=== PATIENT | male | born 1955 | race Caucasian/White ===

== ENCOUNTER → 2018-01-17 12:48 | Outpatient (CLI) | payer OTHER, SELFPAY ==
--- NOTE | 2018-01-17 12:50 | RAD_ITS ---
STUDY: X-RAY - LEFT KNEE REASON FOR EXAM: Male, 62 years old. Pain of the left knee. TECHNIQUE: 4 view(s) of the knee. COMPARISON: None. FINDINGS: Normal visualized distal femur. Normal visualized proximal tibia and fibula. Normal proximal tibiofibular articulation. Anterior enthesophyte of the patella. Normal medial femorotibial compartment. Normal lateral femorotibial compartment. Normal patellofemoral articulation. There is no demonstrated joint effusion. The soft tissue structures are unremarkable. RAD/Knee 4 or More Views IMPRESSION: Normally located knee without a fracture, osteolytic or blastic bone lesion. Anterior enthesophyte of the patella. Small volume joint effusion. Electronically Signed: Lo Kapadia MD at 18:04 EDT , Service support ,
[2018-01-17 13:20] LABS: Lyme Ab Screen Interpretation REF LAB
[2018-01-17 15:53] LABS: Absolute Lymphocyte Count 1.79 X10^3/ul (0.83-4.51); Absolute Neutrophil Count 4.9 X10^3/uL (2.0-7.7); Basophil# 0.07 X10^3/uL; Basophil% 0.9 % (0-1); Eosinophil# 0.13 X10^3/uL; Eosinophils% 1.7 % (0-5); Hemoglobin 17.3 g/dl (13.0-16.5); Lymphocyte # 1.79 X10^3/ul (4.0); Lymphocyte % 22.9 % (19-41); Mean Corp Hgb Conc 34.6 g/gl (32-36); Mean Corpuscular Volume 86.8 fL (80-94); Mean Platelet Vol. 12.3 fl (6.2-12.0); Monocyte# 0.75 X10^3/uL; Monocyte% 9.6 % (0-10); Neutrophil # 4.88 X10^3/uL (2.7-7.7); Neutrophil % 62.3 % (47-70); Platelet Count 226 K/mm3 (150-450); RBC Distribution Width CV 14.5 % (11.6-14.6); RBC Distribution Width SD 46.1 fl (35.1-43.9); Red Blood Count 5.76 M/mm3 (4.6-6.2); White Blood Count 7.8 K/mm3 (4.4-11.0)
[2018-01-17 15:58] LABS: POSITIVE COUNT YES; POSITIVE DIFFERENTIAL NO; POSITIVE MORPHOLOGY YES
[2018-01-17 16:13] LABS: CRP < 2.90 mg/L (0.0-3.0); Rheumatoid Factor < 10.0 IU/mL (<15)
[2018-01-17 16:26] LABS: Erythrocyte Sedimentation Rate 16 mm/hr (0-20)
[2018-01-18 12:09] LABS: Pathologist Review Reviewed
[2018-01-19 14:23] LABS: ANTINUCLEAR ANTIBODIES DIRECT Negative (Negative)
[2018-01-22 12:32] LABS: Lyme Scn Total Ab w/Rflx <0.91 ISR (0.00-0.90)
== END ==
PROVIDERS: Family Provider Family Medicine; PCP Family Medicine; Visit Provider Orthopaedic Surgery
DX: M25.561 Pain in right knee (principal); M25.462 Effusion, left knee
CPT/HCPCS: 36415; 73564; 85025; 85652; 86038; 86140; 86431; 86618

== ENCOUNTER → 2018-02-12 13:12 | Outpatient (CLI) | payer OTHER, SELFPAY ==
--- NOTE | 2018-02-12 13:21 | MRI_ITS ---
STUDY: MRI LEFT KNEE REASON FOR EXAM: Anterior knee pain for 4 weeks, no specific injury. TECHNIQUE: Standardized fat and water weighted pulse sequences were obtained in all 3 orthogonal planes. COMPARISON: Radiographs 01/17/2018. FINDINGS: There is a horizontal tear of the inferior articular surface of the posterior horn of the medial meniscus (proton-density sagittal images 10-12). Normal hyaline cartilage of the medial femorotibial compartment. Normal medial femoral condyle and tibial plateau. Normal medial collateral ligamentous complex (MCL). Normal distal semimembranosus, gracilis and semitendinosus tendons. Normal lateral meniscus. Normal hyaline cartilage of the lateral femorotibial compartment. Normal lateral femoral condyle and tibial plateau. Normal proximal tibiofibular articulation. Normal lateral collateral (fibular) ligament. Normal popliteus tendon. Normal biceps femoris tendon. Normal anterior cruciate ligament (ACL). Normal posterior cruciate ligament (PCL). Normal congruent patellofemoral articulation. Normal hyaline cartilage of the patellofemoral compartment. Normal medial and lateral patellar retinaculum. There is mild tendinosis of the distal quadriceps tendon (T2 sagittal image 14). Normal patellar tendon. Normal Hoffa's fat pad. There is a small joint effusion. There is a very small popliteal cyst with mild extravasation of fluid (T2 sagittal images 6-8). There is edema in the anterior subcutis adipose space. There is mild bone edema of the patella (T2 sagittal images 15-17). MRI/Lower Ext Joint Only (Routine) IMPRESSION: Medial meniscal tear. Mild tendinosis of the distal quadriceps tendon. Mild bone edema of the patella. Small joint effusion. Very small popliteal cyst with mild extravasation of fluid. Electronically Signed: Naeem Najera MD at 14:57 EDT Tel , Service support ,
== END ==
PROVIDERS: Family Provider Family Medicine; PCP Family Medicine; Visit Provider Orthopaedic Surgery
DX: S83.242A Other tear of medial meniscus, current injury, left knee, initial encounter (principal); M23.92 Unspecified internal derangement of left knee
CPT/HCPCS: 73721

== ENCOUNTER → 2018-02-16 10:11 | Outpatient (CLI) | payer OTHER, SELFPAY ==
[2018-02-16 12:37] LABS: Absolute Lymphocyte Count 0.92 X10^3/ul (0.83-4.51); Absolute Neutrophil Count 4.3 X10^3/uL (2.0-7.7); Basophil# 0.03 X10^3/uL; Basophil% 0.5 % (0-1); Eosinophils% 1.6 % (0-5); Hematocrit 42.9 % (40-54); Hemoglobin 14.5 g/dl (13.0-16.5); Lymphocyte # 0.92 X10^3/ul (4.0); Mean Corp Hgb Conc 33.8 g/gl (32-36); Mean Corpuscular Volume 88.8 fL (80-94); Mean Platelet Vol. 11.6 fl (6.2-12.0); Monocyte% 11.4 % (0-10); Neutrophil # 4.34 X10^3/uL (2.7-7.7); Neutrophil % 70.7 % (47-70); Platelet Count 274 K/mm3 (150-450); RBC Distribution Width CV 14.2 % (11.6-14.6); RBC Distribution Width SD 45.9 fl (35.1-43.9); Red Blood Count 4.83 M/mm3 (4.6-6.2); White Blood Count 6.1 K/mm3 (4.4-11.0)
[2018-02-16 12:41] LABS: POSITIVE COUNT NO; POSITIVE DIFFERENTIAL NO; POSITIVE MORPHOLOGY NO
[2018-02-16 12:43] LABS: Erythrocyte Sedimentation Rate 28 mm/hr (0-20)
== END ==
PROVIDERS: Visit Provider Family Medicine
DX: M70.42 Prepatellar bursitis, left knee (principal)
CPT/HCPCS: 36415; 85025; 85652; 86140

== ENCOUNTER 2018-02-19 11:24 | Emergency (ER) | payer OTHER, SELFPAY ==
[2018-02-19 11:25] VITALS: BP 116/77; PULSE 71; RESP 16; TEMP 36.7; O2SAT 100; BMI 31.1
--- NOTE | 2018-02-19 12:11 | RAD_ITS ---
STUDY: X-RAY - LEFT KNEE REASON FOR EXAM: Male, 62 years old. Left-sided knee pain and swelling. TECHNIQUE: 4 view(s) of the knee. COMPARISON: Radiographs of the left knee dated January 17, 2018. FINDINGS: Normal visualized distal femur. Normal visualized proximal tibia and fibula. Normal proximal tibiofibular articulation. There is no demonstrated fracture. Normal medial femorotibial compartment. Normal lateral femorotibial compartment. Normal patellofemoral articulation. There are enthesophytes arising from the quadriceps and patellar tendon insertions onto the patella. There is a moderate volume joint effusion. There is soft tissue contusion of the anterior knee. RAD/Knee 4 or More Views IMPRESSION: Soft tissue swelling and joint effusion. Electronically Signed: Valerie Briceno MD at 14:10 EDT , Service support ,
--- NOTE | 2018-02-19 12:22 | VDLE_ITS ---
Reason For Study: LEG PAIN AND SWELLING Procedure LEFT Exam performed portable in ED. GSV is normal. A preliminary report was called and/or faxed CFV is compressible, spontaneous, phasic, to ED nurse. competent, and demonstrates normal augmentation. FV is compressible, spontaneous, phasic, competent and demonstrates normal augmentation. POP V is compressible, spontaneous, phasic, competent and demonstrates normal augmentation. T/P Trunk is compressible. PTV is compressible. LT PerV is compressible. Interpretation Summary Deep veins of the left lower extremity are patent and compressible segmentally. There is no evidence of left lower extremity deep vein thrombosis. Valvular competence appears intact within the proximal deep venous system on the left . The left greater saphenous vein appears patent and compressible segmentally. Ordering Physician: Danuta Cooper Referring Physician: Paco Arvizu Performed By: Tonie Wilson RVT
[2018-02-19] MEDS: Ondansetron 4 MG/2 ML Vial IV (12:28)
[2018-02-19] MEDS: Morphine 4 MG/ML Syringe IV ×2 (12:28→15:10)
[2018-02-19 12:50] LABS: Absolute Lymphocyte Count 0.88 X10^3/ul (0.83-4.51); Absolute Neutrophil Count 6.7 X10^3/uL (2.0-7.7); Basophil# 0.04 X10^3/uL; Basophil% 0.5 % (0-1); Eosinophils% 1.2 % (0-5); Hematocrit 46.2 % (40-54); Hemoglobin 15.7 g/dl (13.0-16.5); Lymphocyte # 0.88 X10^3/ul (4.0); Lymphocyte % 10.3 % (19-41); Mean Corpuscular Hgb 29.8 pg (27.0-32.0); Mean Corpuscular Volume 87.7 fL (80-94); Mean Platelet Vol. 11.2 fl (6.2-12.0); Monocyte# 0.76 X10^3/uL; Monocyte% 8.9 % (0-10); Neutrophil # 6.72 X10^3/uL (2.7-7.7); Neutrophil % 78.4 % (47-70); POSITIVE COUNT NO; POSITIVE DIFFERENTIAL NO; POSITIVE MORPHOLOGY NO; Platelet Count 318 K/mm3 (150-450); RBC Distribution Width CV 14.2 % (11.6-14.6); RBC Distribution Width SD 45.6 fl (35.1-43.9); Red Blood Count 5.27 M/mm3 (4.6-6.2); White Blood Count 8.6 K/mm3 (4.4-11.0)
[2018-02-19 13:03] LABS: Anion Gap 7 (5-15); BUN 18 mg/dL (7-18); BUN/Creat Ratio 19.9 RATIO (10-20); Calcium,Total 9.2 mg/dL (8.5-10.1); Chloride 103 mmol/L (98-107); EST Glomerular Filtration Rate 91 mL/min (>60); Est Glom Filt Rate - Afr Amer 110 mL/min (>60); Glucose 84 mg/dL (74-106); Potassium 4.5 mmol/L (3.5-5.1); Sodium Level 136 mmol/L (136-145)
[2018-02-19 13:22] LABS: International Normalized Ratio 2.4; Prothrombin Time (Protime)PT. 26.6 SECONDS (11.7-14.9)
[2018-02-19 13:24] LABS: Partial Thromboplast Time 56.6 Seconds (24.1-36.2)
[2018-02-19 14:00] VITALS: BP 136/92; PULSE 96; RESP 16; O2SAT 99
[2018-02-19 16:07] LABS: AUTO B FLUID DILUENT BKGD CT WBC <0.1 RBC <0.01 (W<.1,R<.01); Pathologist Comment May follow
[2018-02-19 16:08] LABS: Appearance /Synovial Fluid Cloudy (CLEAR); Color / Synovial Fluid Red (Pale Yellow); Source / Synovial Fluid LEFT KNEE; Source- Body Fluid SYNOVIAL; Synovial Fld Mononuclear WBC # 0.255 10^3/ul; Synovial Fld Mononuclear WBC % 5.5 %; Synovial Fld Polynuclear WBC # 4.353 10^3/ul; Synovial Fld Polynuclear WBC % 94.5 %
--- NOTE | 2018-02-19 16:55 | ED.RN ---
called lab- reported it will be approx 30 min before results are in of fluid
[2018-02-19 17:03] LABS: Body Fluid QC Type(s) BF1Q,BF2Q
[2018-02-19 17:10] LABS: Lymph 2 %; Monocyte /Synovial Fluid 3 %; Neutrophil 95 % (0-25)
--- NOTE | 2018-02-19 17:29 | ED.VISSUMM ---
- ER Visit Summary Date of Service: 02/19/18 Chief Complaint: Left knee pain and swelling History of Present Illness: The patient is a 62 M presents for 4 weeks of worsening left knee pain and swelling. Patient has been having knee pain, for which she has been seeing Dr. Arvizu and his family doctor, over the last 4 weeks. He already had an x-ray and blood work performed and was given a cortisone shot. 2 weeks ago he had an MRI performed. He has an appointment with Dr. Arvizu on Monday. Last week he began having worsening swelling and was evaluated by his primary care doctor. Lab work was performed and she started him on Dicloxacillin, with this being day 3. The redness and swelling has improved somewhat but patient is in severe pain. He has history of mitral valve prolapse and atrial fibrillation for which she is on Coumadin. No history of blood clots in the lungs or legs. No fever or other systemic symptoms. Physical Examination: Vital signs: afebrile, hemodynamically stable, no hypoxia on room air General: well nourished, well developed, in no distress Skin: warm, dry, no rash, no pallor HEENT: normocephalic and atraumatic; PERRL, EOMI, moist mucous membranes Cardiovascular: regular rate and rhythm without murmurs, no peripheral edema, 2+ pulses all distal extremities Respiratory: No increased work of breathing, lungs are clear to auscultation bilaterally, no rales, rhonchi or wheezing Abdominal: Abdomen is soft, nontender with normoactive bowel sounds, no guarding or rebound, no masses MSK: Moves all extremities, no deformities, normal strength, left lower leg has swelling and tenderness with mild erythema on the proximal knee distally. DP pulses 2+. Pain with very minimal movement. Neuro: Awake and alert, oriented ?4. No facial droop, sensation and motor function intact and symmetric Test Results: Abnormal Lab Results 02/19/18 02/19/18 02/19/18 12:33 12:33 12:33 WBC 8.6 RBC 5.27 Hgb 15.7 Hct 46.2 MCV 87.7 MCH 29.8 MCHC 34.0 RDW 14.2 RDW Differential 45.6 H Plt Count 318 MPV 11.2 Immature Gran % (Auto) 0.700 Neut % (Auto) 78.4 H Lymph % (Auto) 10.3 L [place] % (Auto) 8.9 Eos % (Auto) 1.2 Baso % (Auto) 0.5 Absolute Neuts (auto) 6.7 Absolute Lymphs (auto) 0.88 Total Counted Not Reportable PT Cancelled INR Cancelled APTT Cancelled Sodium 136 Potassium 4.5 Chloride 103 Carbon Dioxide 26.0 Anion Gap 7 BUN 18 Creatinine 0.90 Estim Creat Clear Calc 95.80 Est GFR (MDRD) Af Amer 110 Est GFR (MDRD) Non-Af 91 BUN/Creatinine Ratio 19.9 Glucose 84 Calcium 9.2 Fluid Source Fluid Color Fluid Appearance Fluid WBC Fluid RBC Fluid Tot Cell Count Fld Polynuclear WBCs # Fld Polynuclear WBCs % Fluid Mononuclear WBCs Fld Mononuclear WBCs % Fluid Neutrophils Fluid Lymphocytes Fluid Monocytes Fluid Plasma Cells Fluid Macrophages Fld Mesothelial Cells Fluid Other Cells Fluid Crystals Fluid Crystal Source Fl Crystal Path Review Fl Pathologist Comment Fluid Glucose Fluid Total Protein Fluid Comment 2 Synovial Source Synovial Color Synovial Appearance Synovial WBC Synovial RBC Synovial Tot Cell Ct Synov Polynuclear WBCs Synov Mononuclear WBCs Synovial Neutrophils Synovial Lymphocytes Synovial Monocytes Synovial Polynuclear % Synovial Mononuclear % Synovial Path Comment 02/19/18 02/19/18 02/19/18 13:05 15:40 15:40 WBC RBC Hgb Hct MCV MCH MCHC RDW RDW Differential Plt Count MPV Immature Gran % (Auto) Neut % (Auto) Lymph % (Auto) [place] % (Auto) Eos % (Auto) Baso % (Auto) Absolute Neuts (auto) Absolute Lymphs (auto) Total Counted PT 26.6 H INR 2.4 APTT 56.6 H Sodium Potassium Chloride Carbon Dioxide Anion Gap BUN Creatinine Estim Creat Clear Calc Est GFR (MDRD) Af Amer Est GFR (MDRD) Non-Af BUN/Creatinine Ratio Glucose Calcium Fluid Source Cancelled Fluid Color Cancelled Fluid Appearance Cancelled Fluid WBC Cancelled Fluid RBC Cancelled Fluid Tot Cell Count Cancelled Fld Polynuclear WBCs # Cancelled Fld Polynuclear WBCs % Cancelled Fluid Mononuclear WBCs Cancelled Fld Mononuclear WBCs % Cancelled Fluid Neutrophils Cancelled Fluid Lymphocytes Cancelled Fluid Monocytes Cancelled Fluid Plasma Cells Cancelled Fluid Macrophages Cancelled Fld Mesothelial Cells Cancelled Fluid Other Cells Cancelled Fluid Crystals SEE PATH REV Fluid Crystal Source SYNOVIAL Fl Crystal Path Review Will follow Fl Pathologist Comment Cancelled Fluid Glucose Cancelled Fluid Total Protein Cancelled Fluid Comment 2 Cancelled Synovial Source LEFT KNEE Synovial Color Red Synovial Appearance Cloudy Synovial WBC 4.6080 H Synovial RBC 0.070 H Synovial Tot Cell Ct 4.6110 H Synov Polynuclear WBCs 4.353 Synov Mononuclear WBCs 0.255 Synovial Neutrophils 95 H Synovial Lymphocytes 2 Synovial Monocytes 3 Synovial Polynuclear % 94.5 Synovial Mononuclear % 5.[address]ovial [address] Comment May follow Emergency Department Course and Treatment: Workup was performed to evaluate for possible septic arthritis. Left knee x-ray showed a joint effusion but no fractures. Ultrasound was performed to rule out DVT, and it was negative. Patient had no leukocytosis on lab work. INR was 2.4. He was discussed with Dr. Arvizu's PA, who contacted Dr. Arvizu re: arthrocentesis. It was deemed safe to perform with patient's INR 2.4, and if concern for infection, Dr. Arvizu asked patient be admitted to the hospitalist and he will perform a washout tomorrow. If negative for infection, he will see the patient on Monday as planned. After weighing the risks and benefits with the patient, he opted for the arthrocentesis, and we discussed that the possible side effects would be hemarthrosis from him being on Coumadin, infection if there is not currently infection, or worsening of his condition. Patient's knee was prepared with Betadine, and using sterile technique, an 18-gauge needle was inserted parapatellar laterally, with aspiration of 12.5 cc of mildly bloody clear synovial fluid. No cloudiness noted. Blood is likely secondary to the actual procedural tap. Synovial fluid analysis was consistent with inflammatory etiology, and less concerning for infectious etiology. Patient was discharged home and will follow up on Monday as scheduled. He has great sensitivities to multiple pain medications but did well with morphine the emergency department. He was given a small prescription for oral morphine IR well as topical diclofenac to try. He was given Zofran to use with his pain medications. Return precautions given. Patient discharged home. Treatment Plan: [] Disposition: [] Impression: Inflammatory left knee effusion, left knee pain This note was generated with [employer] dictation software. It may contain incorrect words, spelling, and punctuation that were not noted in review of the chart prior to signing ED Disposition - Plan for ED Patient: Disposition: Home or Assisted Living Chief Complaint: Lower Extremity Injury Instructions: ED Knee Pain [facility] Prescriptions: Morphine [Morphine IR] 7.5 - 15 mg PO Q6H PRN PRN 2 Days #8 tab PRN Reason: Pain Ondansetron [Zofran Odt] 4 mg PO Q8H PRN PRN #20 tab PRN Reason: Nausea Diclofenac Sodium [Voltaren] 2 gm TOPICAL 4X/DAY PRN PRN #100 gel..gram. PRN Reason: Pain Referrals: Danuta Boswell DO [Primary Care Provider] - Paco Arvizu DO [STAFF PHYSICIAN] - 2 Days Additional Instructions: Keep your appointment with Dr. Arvizu in 2 days. You may try the topical Voltaren over the morphine tablets for pain. Use the Zofran with the tablets to prevent nausea. If you have any adverse symptoms from the pain medication, stop it immediately. If you have any worsening of your condition or any new concerning symptoms, please return immediately to the emergency department for another evaluation.
[2018-02-20 14:14] LABS: Pathologist Review Reviewed
[2018-02-22 10:07] LABS: GLUCOSE, SYNOVIAL FLUID 78 mg/dL (.); PROTEIN, SYNOVIAL FLUID 3.2 g/dL (.)
== END 2018-02-19 18:47 | disposition home or self-care (01) ==
PROVIDERS: Emergency Provider Emergency Medicine; Family Provider Family Medicine; PCP Family Medicine
DX: M25.462 Effusion, left knee (principal); M25.562 Pain in left knee; I34.1 Nonrheumatic mitral (valve) prolapse; I48.91 Unspecified atrial fibrillation; Z79.01 Long term (current) use of anticoagulants; Z79.899 Other long term (current) drug therapy
CPT/HCPCS: 20610; 73564; 80048; 82945; 84157; 85025; 85610; 85730; 87040; 87070; 87075; 87205; 89050; 89051; 89060; 93971; 99283; A4216; J2405

== ENCOUNTER → 2019-12-06 08:46 | Outpatient (CLI) | payer OTHER, SELFPAY ==
[2019-12-06 12:26] LABS: Absolute Lymphocyte Count 1.34 X10^3/uL (0.83-4.51); Absolute Neutrophil Count 2.3 X10^3/uL (2.0-7.7); Basophil# 0.06 X10^3/uL; Basophil% 1.4 % (0-1); Eosinophil# 0.16 X10^3/uL; Eosinophils% 3.7 % (0-5); Hematocrit 48.5 % (40-54); Hemoglobin 15.9 g/dL (13.0-16.5); Lymphocyte # 1.34 X10^3/ul (4.0); Lymphocyte % 30.6 % (19-41); Mean Corp Hgb Conc 32.8 g/dL (32-36); Mean Corpuscular Hgb 29.5 pg (27.0-32.0); Mean Platelet Vol. 11.4 fl (6.2-12.0); Monocyte# 0.45 X10^3/uL; Monocyte% 10.3 % (0-10); NRBC Flagged by Analyzer 0 % (0-5); Neutrophil # 2.34 X10^3/uL (2.7-7.7); Neutrophil % 53.3 % (47-70); Platelet Count 237 K/mm3 (150-450); RBC Distribution Width CV 13.4 % (11.6-14.6); RBC Distribution Width SD 44.2 fl (35.1-43.9); Red Blood Count 5.39 M/mm3 (4.6-6.2); White Blood Count 4.4 K/mm3 (4.4-11.0)
[2019-12-06 12:34] LABS: International Normalized Ratio 1.6
[2019-12-06 12:40] LABS: AST(SGOT) 28 U/L (15-37); Alanine Aminotransfer ALT/SGPT 47 U/L (16-61); Albumin, Serum 3.8 g/dL (3.2-5.0); Alkaline Phosphatase 69 U/L (45-117); Anion Gap 7 (5-15); BUN 28 mg/dL (7-18); BUN/Creat Ratio 26.7 RATIO (10-20); Calcium,Total 8.7 mg/dL (8.5-10.1); Chloride 102 mmol/L (98-107); Creatinine, Serum 1.05 mg/dL (0.70-1.30); EST Glomerular Filtration Rate 76 mL/min (>60); Est Glom Filt Rate - Afr Amer 92 mL/min (>60); Globulin 3.7 g/dL (2.2-4.2); Glucose 107 mg/dL (74-106); Potassium 4.2 mmol/L (3.5-5.1); Protein, Total 7.5 g/dL (6.4-8.2); Sodium Level 137 mmol/L (136-145); Uric Acid 8.8 mg/dL (3.5-7.2)
== END ==
PROVIDERS: PCP Family Medicine; Visit Provider Family Medicine
DX: Z51.81 Encounter for therapeutic drug level monitoring (principal); Z79.01 Long term (current) use of anticoagulants; M10.9 Gout, unspecified
CPT/HCPCS: 36415; 80053; 84550; 85025; 85610

== ENCOUNTER 2020-02-24 08:48 | Outpatient (RCR) | payer OTHER, SELFPAY ==
[2020-02-24 10:35] LABS: International Normalized Ratio 2.8; Prothrombin Time (Protime)PT. 29.2 SECONDS (11.7-14.9)
== END 2020-02-24 18:00 | disposition home or self-care (01) ==
LOC: MTLAB 08:48
PROVIDERS: PCP Family Medicine; Referring Provider Family Medicine; Visit Provider Family Medicine
DX: I48.91 Unspecified atrial fibrillation (principal); Z51.81 Encounter for therapeutic drug level monitoring; Z79.01 Long term (current) use of anticoagulants
CPT/HCPCS: 36415; 85610

== ENCOUNTER 2020-07-14 11:42 | Outpatient (RCR) | payer OTHER, SELFPAY ==
[2020-07-14 15:12] LABS: International Normalized Ratio 2.7; Prothrombin Time (Protime)PT. 28.3 SECONDS (11.7-14.9)
== END 2020-07-14 18:00 | disposition home or self-care (01) ==
LOC: MTLAB 11:42
PROVIDERS: PCP Family Medicine; Referring Provider Family Medicine; Visit Provider Family Medicine
DX: I48.91 Unspecified atrial fibrillation (principal); Z51.81 Encounter for therapeutic drug level monitoring; Z79.01 Long term (current) use of anticoagulants
CPT/HCPCS: 36415; 85610

== ENCOUNTER 2020-10-23 14:15 | Outpatient (RCR) | payer OTHER, SELFPAY ==
[2020-10-23 17:45] LABS: International Normalized Ratio 2.1; Prothrombin Time (Protime)PT. 22.9 SECONDS (11.7-14.9)
== END 2020-10-23 18:00 | disposition home or self-care (01) ==
LOC: MTLAB 14:15
PROVIDERS: PCP Family Medicine; Referring Provider Family Medicine; Visit Provider Family Medicine
DX: I48.91 Unspecified atrial fibrillation (principal); Z51.81 Encounter for therapeutic drug level monitoring; Z79.01 Long term (current) use of anticoagulants
CPT/HCPCS: 36415; 85610

== ENCOUNTER → 2020-12-09 10:31 | Outpatient (CLI) | payer OTHER, SELFPAY ==
--- NOTE | 2020-12-09 10:34 | RAD_ITS ---
STUDY: X-RAY - RIGHT FOOT CLINICAL: Right heel/foot pain. TECHNIQUE: 3 view(s) of the foot. COMPARISON: Radiographs 02/04/2011. FINDINGS: There is a posterior calcaneal enthesophyte, increased in size since the prior study. Otherwise, unremarkable talus, calcaneus, and tarsal bones. Normal visualized subtalar, talonavicular, calcaneocuboid, tarsal and tarsometatarsal articulations. Normal metatarsi. There is interval development of a small subchondral cyst in the first metatarsal head without joint space narrowing of the metatarsophalangeal joint of the great toe. Normal tibial and fibular sesamoid bones. Normal interphalangeal joint of the great toe. Normal phalanges of the great toe. Normal second through fifth metatarsophalangeal joints. Normal interphalangeal joints and phalanges of the lesser toes. The soft tissue structures are unremarkable. RAD/Foot min 3 Views IMPRESSION: Posterior calcaneal enthesophyte. Small subchondral cyst in the first metatarsal head. Electronically Signed: Naeem Najera MD at 13:40 EDT Tel , Service support ,
== END ==
PROVIDERS: PCP Family Medicine; Referring Provider Family Medicine; Visit Provider Family Medicine
DX: M79.671 Pain in right foot (principal)
CPT/HCPCS: 73630

== ENCOUNTER → 2022-08-05 | Outpatient (CLI) | payer MEDICARE, OTHER, SELFPAY ==
--- NOTE | 2022-08-05 15:29 | RAD_ITS ---
STUDY: XR Ankle Min 3 Views REASON FOR EXAM: Male, 67 years old. ANKLE PAIN TECHNIQUE: XR Ankle Min 3 Views RIGHT COMPARISON: None. FINDINGS: Normal visualized distal tibia and fibula. Normal medial and lateral malleoli. Normal tibiotalar articulation and ankle mortise. The visualized subtalar, talonavicular, calcaneocuboid and tarsal articulations are normal. There is an enthesophyte involving the posterior superior calcaneus at the site of insertion of the Achilles tendon. RAD/Ankle min 3 Views IMPRESSION: There is an enthesophyte involving the posterior superior calcaneus at the site of insertion of the Achilles tendon. Electronically Signed: Jared Trinh MD at 18:52 EST ,
[2022-08-05 17:45] LABS: Absolute Lymphocyte Count 1.76 X10^3/uL (0.83-4.51); Absolute Neutrophil Count 8.9 X10^3/uL (2.0-7.7); Basophil# 0.08 X10^3/uL; Basophil% 0.7 % (0-1); Eosinophil# 0.03 X10^3/uL; Eosinophils% 0.2 % (0-5); Hemoglobin 16.2 g/dL (13.0-16.5); Lymphocyte # 1.76 X10^3/ul (0.83-4.51); Lymphocyte % 14.7 % (19-41); Mean Corp Hgb Conc 33.8 g/dL (32-36); Mean Corpuscular Hgb 30.2 pg (27.0-32.0); Mean Corpuscular Volume 89.4 fL (80-94); Mean Platelet Vol. 11.6 fl (6.2-12.0); Monocyte# 1.04 X10^3/uL; Monocyte% 8.7 % (0-10); NRBC Flagged by Analyzer 0 % (0-5); Neutrophil # 8.85 X10^3/uL (2.7-7.7); Neutrophil % 73.6 % (47-70); Platelet Count 244 K/mm3 (150-450); RBC Distribution Width SD 45.1 fl (35.1-43.9); Red Blood Count 5.37 M/mm3 (4.6-6.2)
[2022-08-05 18:06] LABS: Anion Gap 7 (5-15); BUN 31 mg/dL (7-18); BUN/Creat Ratio 36.7 RATIO (10-20); CRP < 2.90 mg/L (0.0-3.0); Calcium,Total 8.9 mg/dL (8.5-10.1); Chloride 103 mmol/L (98-107); Creatinine, Serum 0.84 mg/dL (0.70-1.30); EST Glomerular Filtration Rate 97 mL/min (>60); Est Glom Filt Rate - Afr Amer 117 mL/min (>60); Glucose 81 mg/dL (74-106); Sodium Level 139 mmol/L (136-145); Uric Acid 5.9 mg/dL (3.5-7.2)
== END | disposition home or self-care (01) ==
LOC: MTLAB 15:27
PROVIDERS: PCP Family Medicine; Referring Provider Family Medicine; Visit Provider Family Medicine
DX: M10.9 Gout, unspecified (principal); Z51.81 Encounter for therapeutic drug level monitoring; M79.671 Pain in right foot
CPT/HCPCS: 36415; 73610; 80048; 84550; 85025; 86140

== ENCOUNTER → 2023-11-17 | Outpatient (CLI) | payer MEDICARE, OTHER, SELFPAY ==
[2023-11-17 12:33] LABS: International Normalized Ratio 1.9; Prothrombin Time (Protime)PT. 21.5 SECONDS (11.7-14.9)
== END | disposition home or self-care (01) ==
LOC: BFHLAB 10:09
PROVIDERS: PCP Family Medicine; Visit Provider Family Medicine
DX: Z79.01 Long term (current) use of anticoagulants (principal)
CPT/HCPCS: 36415; 85610

== ENCOUNTER → 2024-02-29 | Outpatient (CLI) | payer MEDICARE, OTHER, SELFPAY ==
[2024-02-29 15:32] LABS: Absolute Lymphocyte Count 1.78 X10^3/uL (0.83-4.51); Absolute Neutrophil Count 5.2 X10^3/uL (2.0-7.7); Basophil# 0.06 X10^3/uL; Basophil% 0.7 % (0-1); Eosinophil# 0.14 X10^3/uL; Eosinophils% 1.7 % (0-5); Hematocrit 45.5 % (40-54); Hemoglobin 15.4 g/dL (13.0-16.5); Lymphocyte # 1.78 X10^3/ul (0.83-4.51); Mean Corp Hgb Conc 33.8 g/dL (32-36); Mean Corpuscular Hgb 29.6 pg (27.0-32.0); Mean Corpuscular Volume 87.5 fL (80-94); Mean Platelet Vol. 11.8 fl (6.2-12.0); Monocyte# 0.85 X10^3/uL; Monocyte% 10.5 % (0-10); NRBC Flagged by Analyzer 0 % (0-5); Neutrophil # 5.23 X10^3/uL (2.7-7.7); Neutrophil % 64.6 % (47-70); Platelet Count 209 K/mm3 (150-450); RBC Distribution Width CV 13.7 % (11.6-14.6); RBC Distribution Width SD 43.9 fl (35.1-43.9); White Blood Count 8.1 K/mm3 (4.4-11.0)
[2024-02-29 16:30] LABS: ALB/GLOB Ratio 1.1 RATIO (0.9-2.4); AST(SGOT) 23 U/L (15-37); Alanine Aminotransfer ALT/SGPT 28 U/L (16-61); Albumin, Serum 3.7 g/dL (3.2-5.0); Alkaline Phosphatase 70 U/L (45-117); Anion Gap 7 (5-15); BUN 20 mg/dL (7-18); Calcium,Total 9.2 mg/dL (8.5-10.1); Chloride 104 mmol/L (98-107); Creatinine, Serum 1.11 mg/dL (0.70-1.30); EST Glomerular Filtration Rate 70 mL/min (>60); Est Glom Filt Rate - Afr Amer 85 mL/min (>60); Globulin 3.3 g/dL (2.2-4.2); Glucose 103 mg/dL (74-106); Potassium 4.1 mmol/L (3.5-5.1); Sodium Level 138 mmol/L (136-145)
[2024-03-04 12:08] LABS: ANTINUCLEAR ANTIBODIES DIRECT Negative (Negative)
== END | disposition home or self-care (01) ==
LOC: BFHLAB 13:32
PROVIDERS: PCP Family Medicine; Referring Provider Family Medicine; Visit Provider Family Medicine
DX: R23.3 Spontaneous ecchymoses (principal); Z51.81 Encounter for therapeutic drug level monitoring
CPT/HCPCS: 36415; 80053; 85025; 86038; 86225; 86235

== ENCOUNTER → 2024-03-19 | Outpatient (CLI) | payer MEDICARE, SELFPAY ==
--- NOTE | 2024-03-19 11:32 | RAD_ITS ---
STUDY: X-RAY CHEST REASON FOR EXAM: Male, 68 years old. Persistent cough. TECHNIQUE: Frontal and lateral views of the chest. COMPARISON: None. FINDINGS: The lungs are clear and expanded. There is no demonstrated pleural abnormality. Mild cardiomegaly. Normal mediastinum and nusrat. Normal visualized pulmonary arteries. Mild aortic tortuosity. Normal visualized thoracic spine. Normal visualized ribs, clavicles, and shoulders. No abnormality of the visualized soft tissue structures of the upper abdomen. RAD/Chest PA and Lateral IMPRESSION: Mild cardiomegaly with no acute or active cardiopulmonary disease. Electronically Signed: Hardik Cohn MD at 11:47 EDT ,
== END | disposition home or self-care (01) ==
LOC: MTRAD 11:31
PROVIDERS: PCP Family Medicine; Referring Provider Family Medicine; Visit Provider Family Medicine
DX: R05.3 Chronic cough (principal)
CPT/HCPCS: 71046

== ENCOUNTER → 2024-03-29 | Outpatient (CLI) | payer MEDICARE, SELFPAY | END | disposition home or self-care (01) | LOC: PSN 08:00 | PROVIDERS: PCP Family Medicine; Referring Provider Family Medicine; Visit Provider Family Medicine | DX: R05.9 Cough, unspecified (principal) | CPT/HCPCS: 94060; 94726; 94729 ==

== ENCOUNTER → 2024-11-21 | Outpatient (CLI) | payer MEDICARE, SELFPAY ==
[2024-11-21 14:23] LABS: Cholesterol 198 mg/dL (<=200); High Density Lipoprotein 49 mg/dL; Low Density Lipoprotein Calc. 117 mg/dL; Triglycerides 162 mg/dL; Very Low Density Lipoprotein 32 mg/dL (5-40); cholesterol:hdl ratio screen 4.03
== END | disposition home or self-care (01) ==
LOC: BFHLAB 08:24
PROVIDERS: PCP Family Medicine; Referring Provider Family Medicine; Visit Provider Family Medicine
DX: E78.1 Pure hyperglyceridemia (principal)
CPT/HCPCS: 36415; 80061

== ENCOUNTER 2025-03-24 09:00 | Outpatient (RCR) | payer MEDICARE, SELFPAY ==
--- NOTE | 2025-02-26 10:13 | HP.PTEVAL_ITS ---
Patient's Visit Information Visit Information Visit Information: JC BHANDARI is a 69 year old M referred to Physical Therapy by Dr. Rancho Birmingham DO with a diagnosis of R heel pain. 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 US if needed for pain Subjective Subjective: Pt has had R heel/foot pain for approximately 3 weeks now. Pt reports he was working at his [employer] house when he attempted to stand up and noticed severe pain on the posterior aspect of his R heel. Pt reports he has had an x-ray which revealed a bone spur on the back of his heel. Pt notes he had B heel surgery 20 years ago to remove heel spurs which have started to grow back. Pt notes he has been ambulating in a cam boot for the past few days and taking prednisone, which has really helped to decrease his pain. Pt notes he is going to be seeing his doctor again tomorrow. Pt denies tingling or numbness in that area, although he does have neuropathy which results in occasional numbness in feet. Pt notes occasional sleep difficulty secondary to pain. 0/10 pain at rest, 10/10 pain at worst Pain R heel: Pain Intensity (Out of 10): 0 Pain Intensity Range: 10 Objective Objective: Neuro: B LE sensation is WNL to light touch. Palpation: Mild pain on the posterior astect of R heel. Minor increased growth of calcaneal tubercle noted. ROM: L ankle DF= 10, PF= 35; R ankle DF= 3, PF= 35 degrees MMT: L ankle DF= 52, PF= 66; R ankle DF= 42, PF= 53 #F Balance/Special Test Scores Lower Extremity Functional Score: 56 Goals Goal 1:: Decrease R heel pain x 50% to aid with sleep Goal Time Frame: 4-6 Weeks Goal 2:: Increase R LE DF ROM x 10 degrees to aid with decreasing pain Goal Time Frame: 4-6 Weeks Goal 3:: I with HEP Goal Time Frame: 4-6 Weeks Rehabilitation Potential Physical Therapy Diagnosis: Pt has R heel pain and limited ankle DF ROM secondary to R LE heel spurs Rehabilitation Potential: Good Anticipated Interventions Patient/Client Instruction: Educate patient on: Condition and Plan of Care For the Purpose of:: To improve self management Therapeutic Exercise to Include: Strength training, Flexibilty training, Passive ROM and Active ROM For the Purpose of:: To decrease pain, To increase ROM and To improve muscle p erformance and motor function Manual Therapy Techniques to Include: Mobilization and Soft tissue mobilization For the Purpose of:: To decrease pain, To increase ROM and To improve muscle performance and motor function Text: Thank you for the opportunity to evaluate your patient. For Medicare and Medicare HMO plans, please review the plan of care and approve it. It will need to be FAXED BACK to us at [phone] for Medicare purposes. For Medicare only, by signing this I certify the plan of care. Please let me know if there are questions or concerns regarding this plan of care. Physician Signature: Date:
--- NOTE | 2025-05-20 08:44 | HP.PT.NRP ---
Patient Information Patient Information: JC BHANDARI was seen in my office for initial evaluation on 02/26/25. The following Plan of Care was established for this patient: POC Established Initial Frequency: 2x /Week Initial Duration: 2-4 Weeks Anticipated Interventions Patient/Client Instruction: Educate patient on: Condition and Plan of Care For the Purpose of:: To improve self management Therapeutic Exercise to Include: Strength training, Flexibilty training, Passive ROM and Active ROM For the Purpose of:: To decrease pain, To increase ROM and To improve muscle performance and motor function Manual Therapy Techniques to Include: Mobilization and Soft tissue mobilization For the Purpose of:: To decrease pain, To increase ROM and To improve muscle performance and motor function Last Seen Last Seen: This patient was last seen in our office . Pertinent comments regarding their Physical therapy will appear below: Pt has not returned in greater than 30 days and is discontinued at this time. At this point I will be discontinuing this patient from physical therapy. I would be happy to see this patient again in the future if found appropriate by the physician. Thank you! Jared Dee, PT, ATC Balance/Gait/Functional tests Balance/Special Test Scores Lower Extremity Functional Score: 56
== END 2025-03-24 19:00 | disposition home or self-care (01) ==
LOC: PT 09:00
PROVIDERS: PCP Family Medicine; Referring Provider Family Medicine; Visit Provider Family Medicine
DX: M77.31 Calcaneal spur, right foot (principal); M77.51 Other enthesopathy of right foot and ankle
CPT/HCPCS: 97110; 97140; 97161

== ENCOUNTER 2025-05-20 10:59 | Inpatient (IN) | payer MEDICARE, SELFPAY ==
[2025-05-20] VITALS (8 sets, daily range): BP systolic 121–154; BP diastolic 66–105; PULSE 89–114; RESP 16–19; TEMP 35.3–37.2; O2SAT 97–100; BMI 31.1
--- NOTE | 2025-05-20 11:43 | EKG12_ITS ---
Test Reason : Blood Pressure : */* mmHG Vent. Rate : 114 BPM Atrial Rate : * BPM P-R Int : * ms QRS Dur : 94 ms QT Int : 336 ms P-R-T Axes : * 37 -7 degrees QTcB Int : 463 ms Atrial fibrillation with rapid ventricular response with premature ventricular or aberrantly conducted complexes Possible Inferior infarct , age undetermined Abnormal ECG Confirmed by MOISE BOYKIN ([id number]), editorial director ANA CHARLES ([id number]) on 05/21/2025 1:53:52 PM Referred By: SHABBIR Confirmed By: MOISE BOYKIN
--- NOTE | 2025-05-20 11:55 | RAD_ITS ---
PROCEDURE: KNEE 4 OR MORE VIEWS 05/20/2025 REASON FOR EXAM: PAIN, SWELLING TECHNIQUE: Left knee four views COMPARISON: None FINDINGS: There is mild medial joint space narrowing with the minimal spurring of the patellofemoral articulation. There is a large visible joint effusion. There is no acute fracture or dislocation. Mineralization is normal. There is visible atherosclerosis. RAD/Knee 4 or More Views IMPRESSION: There is mild medial joint space narrowing with the minimal spurring of the pat ellofemoral articulation. There is a large visible joint effusion. Reading Location: [facility]
[2025-05-20 12:05] LABS: Hematocrit 51.2 % (40-54); Hemoglobin 17.4 g/dL (13.0-16.5); Immature Granulocytes Count 0.170 X10^3/uL (0.0-0.0); Mean Corp Hgb Conc 34.0 g/dL (32-36); Mean Corpuscular Volume 86.9 fL (80-94); Mean Platelet Vol. 10.8 fl (6.2-12.0); NRBC Flagged by Analyzer 0 % (0-5); Platelet Count 222 K/mm3 (150-450); RBC Distribution Width CV 14.2 % (11.6-14.6); RBC Distribution Width SD 45.7 fl (35.1-43.9); Red Blood Count 5.89 M/mm3 (4.6-6.2); White Blood Count 9.1 K/mm3 (4.4-11.0)
[2025-05-20 12:15] LABS: Prothrombin Time (Protime)PT. 41.7 SECONDS (11.7-14.9)
[2025-05-20 12:16] LABS: Partial Thromboplast Time 57.0 Seconds (24.1-36.2)
[2025-05-20 12:49] LABS: AST(SGOT) 24 U/L (<=37); Alanine Aminotransfer ALT/SGPT 30 U/L (<=46); Albumin, Serum 4.0 g/dL (3.4-4.8); Alkaline Phosphatase 74 U/L (40-129); Anion Gap 13 (5-15); BUN 27 mg/dL (4-19); BUN/Creat Ratio 22.2 RATIO (10-20); Calcium,Total 9.5 mg/dL (7.6-11.0); Carbon Dioxide 23.8 mmol/L (21.0-32.0); Chloride 101 mmol/L (98-108); Globulin 3.1 g/dL (2.2-4.2); Glucose 107 mg/dL (70-99); Potassium 4.6 mmol/L (3.3-5.1)
--- NOTE | 2025-05-20 13:19 | ED.VIS.LOWEX ---
HPI History of Present Illness Chief Complaint: Lower Extremity Injury Narrative Narrative: 70-year-old male past medical history of paroxysmal atrial fibrillation on warfarin presents at the direction of his primary care provider Dr. Birmingham because of failure of outpatient treatment for left knee prepatellar bursitis. Patient and physician had relate history that he started having swelling of the proximal left prepatellar bursa. It was not septic at that time. However, it turned red and he was started on cefdinir. He started a 1 week course of therapy with that. He has a personal friend at [facility] Who is an orthopedic surgeon, and because of the redness, was seen and evaluated. It was felt that he did not have septic arthritis, but more of a septic bursitis. They did not want arthrocentesis or drainage of the bursa performed. Instead they started him on Bactrim DS. He was taking double antibiotics. He is continuing to have left knee pain that is worse with movement as well as increased redness. He denies any fevers or chills, no nausea or vomiting, no other symptoms. He states he was sent here for IV antibiotics and admission. [facility] Medical History Afib Home Medications ?Medication ?Instructions ?Recorded ?Last Taken ?Type pentoxifylline 400 mg 400 mg PO BID 02/19/18 05/20/25 History tablet,extended release warfarin 5 mg tablet (Coumadin) 5 mg PO QODAY 02/19/18 05/18/25 History allopurinol 100 mg tablet 100 mg PO QODAY 05/20/25 05/19/25 History amitriptyline 50 mg tablet 25 mg PO DAILY 05/20/25 05/19/25 History cefdinir 300 mg capsule 300 mg PO Q12.TCU 05/20/25 05/20/25 History hydrocodone-acetaminophen 5-325mg 1 tab PO 4X/DAY PRN PRN pain 05/20/25 05/17/25 History 5mg-325mg ibuprofen 200 mg tablet (Advil) 800 mg PO Q6H PRN pain 05/20/25 05/20/25 History latanoprost 0.005 % eye drops 1 drp ophthalmic (eye) QPM 05/20/25 05/19/25 History metoprolol tartrate 50 mg tablet 25 mg PO BID 05/20/25 05/20/25 History nitroglycerin 0.4 mg sublingual 0.4 mg sublingual Q5M PRN chest 05/20/25 Unknown History tablet pain sulfamethoxazole 800 1 tab PO BID 05/20/25 05/20/25 History mg-trimethoprim 160 mg tablet warfarin 5 mg tablet 7.5 mg PO QODAY 05/20/25 05/19/25 History Allergy/AdvReac Type Severity Reaction Status Date / Time acetaminophen (From Vicodin) AdvReac Nausea/Vom/ Verified 05/20/25 11:03 Diarrhea hydrocodone bitartrate (From AdvReac Nausea/Vom/ Verified 05/20/25 11:03 Vicodin) Diarrhea Family History Mother Hypertension Multiple sclerosis Surgical History H/O foot surgery Social History Smoking Status: Never smoker ROS ROS ED ROS Narrative Review of systems positive for left knee pain, swelling of prepatellar bursa, mild erythema, but no fevers or chills, no nausea or vomiting. Pain worse with movement. Range of motion limited secondary to pain. EXAM Physical Exam Narrative Exam Narrative: Afebrile. Vital signs noted. Nontoxic-appearing. Cardiovascular examination feels regular rate and rhythm. Lungs clear to auscultation bilaterally. Abdomen soft nontender with positive bowel sounds. Inspection of the left knee does show swelling of the more proximal anterior patella. Neurovascular tact distally with palpable dorsalis pedis pulse. Mild erythema. Diffuse tenderness to palpation. Const Vital Signs: 05/20/25 10:59 05/20/25 11:43 05/20/25 11:43 Temperature 95.5 F L 98.7 F Temperature Source Temporal Oral Pulse Rate 89 110 H Respiratory Rate 16 18 Blood Pressure 126/105 H 132/94 H Blood Pressure Mean 112 106 Pulse Ox 97 98 Oxygen Delivery Method Room Air Room Air Room Air 05/20/25 12:03 05/20/25 13:00 Temperature 98.9 F 98.9 F Temperature Source Oral Temporal Pulse Rate 104 H 114 H Respiratory Rate 18 19 H Blood Pressure 154/66 H 141/78 H Blood Pressure Mean 95 99 Pulse Ox 99 98 Oxygen Delivery Method Room Air Room Air MDM MDM MDM Narrative Medical decision making narrative: Differential diagnosis includes but not limited to prepatellar bursitis, septic versus septic arthritis. Patient has failed outpatient treatment with antibiotics. I am reluctant to perform arthrocentesis given his elevated INR, and surrounding erythema. Laboratory work was obtained and reviewed. He has normal white count 9.1 with hemoglobin slightly hemoconcentrated at 17.4, platelet count normal at 222. INR is supratherapeutic at 4.2. Coumadin will be held. This puts in the differential diagnosis as well hemarthrosis. Lactic acid is normal at 1.7 so I doubt severe sepsis. LFTs are grossly unremarkable. On my independent interpretation of his x-ray of the left knee and 4 views, there is a moderately sized joint effusion but no evidence of an acute fracture. I reviewed the radiology report which confirms my independent interpretation. I will discuss patient with Dr. Lu on for orthopedics, he was started on vancomycin and Zosyn. In discussion with Dr. Lu, he is agreeable to follow as an inpatient. There was lower suspicion for septic arthritis as he does not have a white count or fever. I discussed the patient with Dr. Estevez for admission. Disposition is admit in stable condition. Clinical impression: 1. Septic suprapatellar bursitis left knee 2. Supratherapeutic INR 3. Joint effusion 4. Long-term use of anticoagulant. History & Record Review Discussion w/independent historian: Patient Additional record(s) reviewed:: Prior ED visit Lab Data Attestation: I reviewed the patient's lab results. Labs: Laboratory Results - last 24 hr 05/20/25 11:50 WBC 9.1 RBC 5.89 Hgb 17.4 H Hct 51.2 MCV 86.9 MCH 29.5 MCHC 34.0 RDW Std Deviation 45.7 H RDW Coeff of Misbah 14.2 Plt Count 222 MPV 10.8 Immature Gran % (Auto) 1.900 H Neut % (Auto) 74.8 H Lymph % (Auto) 13.3 L [place] % (Auto) 8.0 Eos % (Auto) 1.1 Baso % (Auto) 0.9 Absolute Neuts (auto) 6.8 Absolute Lymphs (auto) 1.21 Nucleated RBC % 0 PT 41.7 H INR 4.2 H* APTT 57.0 H Sodium 138 Potassium 4.6 Chloride 101 Carbon Dioxide 23.8 Anion Gap 13 BUN 27 H Creatinine 1.20 Est GFR (MDRD) Non-Af 66 BUN/Creatinine Ratio 22.2 H Glucose 107 H Lactic Acid 1.7 Calcium 9.5 Total Bilirubin 0.37 AST 24 ALT 30 Alkaline Phosphatase 74 Total Protein 7.1 Albumin 4.0 Globulin 3.1 Albumin/Globulin Ratio 1.3 Radiography X-Ray: Read by ED Physician and Read by Radiologist Diagnostic Testing: Clinical Impression(s) from Imaging Studies Knee X-Ray 05/20/25 11:55 IMPRESSION: There is mild medial joint space narrowing with the minimal spurring of the patellofemoral articulation. There is a large visible joint effusion. Reading Location: [facility] Management Discussion w/another healthcare provider: Hospitalist (Dr. Estevez) and Contract Graphic Designer (Dr. Lu, orthopedics) Discharge Plan Dx/Rx/DC Orders Clinical Impression: Septic prepatellar bursitis of left knee, Supratherapeutic INR, Anticoagulant long-term use, Failure of outpatient treatment Disposition Disposition: Acute Care [facility]
[2025-05-20] MEDS: Piperacil/Tazobactam 3.375 GM in 0.9% Normal Saline (50mL MB+) 50 ML IV ×2 (13:34→22:02)
--- NOTE | 2025-05-20 14:02 | PCM.HP.STD ---
[facility] - General General Date of Admission: 05/20/25 Date of Service: 05/20/25 Chief Complaint: Left knee pain with swelling and erythema [facility] Narrative JC BHANDARI, is a 70-year-old male history of gout, A-fib, PAD who presented to [facility] ED 05/20/2025 at the direction of his primary care physician Dr. Birmingham due to outpatient failure of treatment for left knee prepatellar bursitis. He initially had swelling of the proximal left prepatellar bursa however it began to turn red and he was started on cefdinir for 1 week. He has a friend who is an orthopedic surgeon who evaluated him and it was not felt to be septic arthritis but more of a septic bursitis, the time did not want arthrocentesis or drainage so instead they started him on Bactrim DS and he was taking both antibiotics but he has continued to have left knee pain worse with movement as well as increasing redness so he was sent to the ED for IV antibiotics and admission. In the ED temp 98.7, heart rate 110 with a blood pressure 132/94, respiratory rate 18 and pulse ox 98% on room air. CBC with normal white count at 9.1 but a neutrophil predominance, hemoglobin 17.4, CMP with a BUN of 27 and creatinine 1.2, glucose 107, lactic acid 1.7. INR was found to be 4.2. The x-ray with large visible joint effusion. Given the elevated INR hemarthrosis was added to the differential, patient given Vanco and Zosyn and case was discussed with Dr. Lu who recommended admission with IV antibiotics and he will follow. Hospitalist contacted for admission. Patient evaluated bedside. Patient reports history as above, around 2 weeks ago he was working in the garden on his knees and he noticed some swelling over the next few days in the left knee and then it turned red with course of illness as above. Denies any fevers, does sometimes get headaches but nothing new, pain currently about a 6 out of 10 and does have limitation of movement. When asked about INR he said PCP predicted it would go up due to antibiotics and that he has been on the same dose for 30 years and usually has no problems. No bleeding or bruising reported. PFSH Medical History Afib Mitral valve prolapse Non-smoker Home Medications ?Medication ?Instructions ?Recorded ?Last Taken ?Type pentoxifylline 400 mg 400 mg PO BID 02/19/18 05/20/25 History tablet,extended release warfarin 5 mg tablet (Coumadin) 5 mg PO QODAY 02/19/18 05/18/25 History allopurinol 100 mg tablet 100 mg PO QODAY 05/20/25 05/19/25 History amitriptyline 50 mg tablet 25 mg PO DAILY 05/20/25 05/19/25 History cefdinir 300 mg capsule 300 mg PO Q12.TCU 05/20/25 05/20/25 History hydrocodone-acetaminophen 5-325mg 1 tab PO 4X/DAY PRN PRN pain 05/20/25 05/17/25 History 5mg-325mg ibuprofen 200 mg tablet (Advil) 800 mg PO Q6H PRN pain 05/20/25 05/20/25 History latanoprost 0.005 % eye drops 1 drp ophthalmic (eye) QPM 05/20/25 05/19/25 History metoprolol tartrate 50 mg tablet 25 mg PO BID 05/20/25 05/20/25 History nitroglycerin 0.4 mg sublingual 0.4 mg sublingual Q5M PRN chest 05/20/25 Unknown History tablet pain sulfamethoxazole 800 1 tab PO BID 05/20/25 05/20/25 History mg-trimethoprim 160 mg tablet warfarin 5 mg tablet 7.5 mg PO QODAY 05/20/25 05/19/25 History Allergy/AdvReac Type Severity Reaction Status Date / Time acetaminophen (From Vicodin) AdvReac Nausea/Vom/ Verified 05/20/25 11:03 Diarrhea hydrocodone bitartrate (From AdvReac Nausea/Vom/ Verified 05/20/25 11:03 Vicodin) Diarrhea Family History Mother Hypertension Multiple sclerosis Surgical History H/O foot surgery Social History Smoking Status: Never smoker ROS ROS Narrative General: Denies fever/chills HENT: Denies headache currently, denies stuffy nose, denies sore throat EYES: Denies changes in vision Resp: Denies cough, denies shortness of breath Cardiac: Denies chest pain GI: Denies abdominal pain, denies changes in bowel, denies nausea/vomiting : Denies changes in urination Extremity: Denies swelling MSK: Denies weakness, does have pain in left knee with limited movement Neuro: Denies any numbness/tingling Heme: Denies any bleeding or bruising Skin: Redness, warmth, erythema surrounding left knee Psychiatric: No complaints voiced Vital Signs Vital Signs Vital Signs: 05/20/25 10:59 05/20/25 11:43 05/20/25 11:43 Temperature 95.5 F L 98.7 F Temperature Source Temporal Oral Pulse Rate 89 110 H Respiratory Rate 16 18 Blood Pressure 126/105 H 132/94 H Blood Pressure Mean 112 106 Pulse Ox 97 98 Oxygen Delivery Method Room Air Room Air Room Air 05/20/25 12:03 05/20/25 13:00 Temperature 98.9 F 98.9 F Temperature Source Oral Temporal Pulse Rate 104 H 114 H Respiratory Rate 18 19 H Blood Pressure 154/66 H 141/78 H Blood Pressure Mean 95 99 Pulse Ox 99 98 Oxygen Delivery Method Room Air Room Air Weight Weight: 104.009 kg Body Mass Index (BMI) 31.1 Physical Exam Narrative General: Alert, oriented, no apparent distress HEENT: Atraumatic, normocephalic Eyes: Anicteric, normal conjunctiva, extraocular movements grossly intact Neck: Supple Respiratory: Clear to auscultation bilaterally, normal respiratory effort Cardiovascular: Irregularly irregular, heart rate around 100 GI: Soft, nontender, nondistended Extremities: Left knee with limited flexion, tender somewhat diffusely with no point tenderness, no drainage, erythematous and warm Musculoskeletal: Moving all extremities but limited movement in left knee Neuro: No overt focal neurological deficits Skin: Erythema around left knee as above Psych: Cooperative Results Lab / Micro Data 05/20/25 11:50 05/20/25 11:50 Labs: Laboratory Results - last 24 hr 05/20/25 11:50: WBC 9.1, RBC 5.89, Hgb 17.4 H, Hct 51.2, MCV 86.9, MCH 29.5, MCHC 34.0, RDW Std Deviation 45.7 H, RDW Coeff of Misbah 14.2, Plt Count 222, MPV 10.8, Immature Gran % (Auto) 1.900 H, Neut % (Auto) 74.8 H, Lymph % (Auto) 13.3 L, [place] % (Auto) 8.0, Eos % (Auto) 1.1, Baso % (Auto) 0.9, Absolute Neuts (auto) 6.8, Absolute Lymphs (auto) 1.21, Nucleated RBC % 0, PT 41.7 H, INR 4.2 H*, APTT 57.0 H, Sodium 138, Potassium 4.6, Chloride 101, Carbon Dioxide 23.8, Anion Gap 13, BUN 27 H, Creatinine 1.20, Est GFR (MDRD) Non-Af 66, BUN/Creatinine Ratio 22.2 H, Glucose 107 H, Lactic Acid 1.7, Calcium 9.5, Total Bilirubin 0.37, AST 24, ALT 30, Alkaline Phosphatase 74, Total Protein 7.1, Albumin 4.0, Globulin 3.1, Albumin/Globulin Ratio 1.3 Imaging Radiology Impression Knee X-Ray 05/20/25 11:55 IMPRESSION: There is mild medial joint space narrowing with the minimal spurring of the patellofemoral articulation. There is a large visible joint effusion. [facility] Assessment & Plan Assessment/Plan (1) Septic prepatellar bursitis of left knee: PLAN: Plan # Left knee swelling with concerns for infection - Knee x-ray demonstrated large visible joint effusion -Prepatellar septic bursitis is suspected -Patient failed outpatient management - Broad-spectrum IV antibiotics -Pain control and supportive care -Blood culture sent in ED - Ortho contacted in the ED and recommended admission with IV antibiotics and they will follow in consult, consult placed - Will also consult ID - Will check uric acid, Pro-Anil, ESR, CRP # Supratherapeutic INR - 4.2 in the ED - Hold Coumadin repeat in the a.m. #Paroxysmal Atrial Fibrillation -Rate control: Metoprolol -Anticoagulation: Coumadin, patient actually supratherapeutic currently # History of PAD - Continue pentoxifylline #Gout -Continue home allopurinol #DVT ppx: Patient presently supratherapeutic Carol Estevez MD Charges/Coding Visit Charges Inpatient E&M: 45794 Init Hosp L2
[2025-05-20] MEDS: Vancomycin HCl 1,500 MG in 0.9% Normal Saline (500mL Bag) 500 ML 250 MG IV (14:13)
[2025-05-20 15:05] LABS: Procalcitonin 0.04 ng/mL (<=0.10); Uric Acid 5.7 mg/dL (3.5-7.2)
[2025-05-20] MEDS: 0.9% Normal Saline (1000mL) 1,000 ML 100 ML IV (15:24)
[2025-05-20 16:22] LABS: CRP 31.10 mg/L (0.0-3.0)
--- NOTE | 2025-05-20 16:35 | CONS.ORTHO ---
HPI Consult Data Date of Consult: 05/20/25 HPI Narrative HPI Narrative: JC BHANDARI, is a 70 M who presents with left knee pain and swelling. This came on after kneeling on the knee for about a hour. No trauma. This has been going on and slowly getting worse for the last 2 weeks. The patient has been on oral antibiotics now for a week without resolution or improvement. No fevers chills or feeling unwell. There is been some redness and warmth at the anterior aspect of the knee and difficulty bending the knee and difficulty ambulating. The patient is here with his . He has been admitted. He has started on IV antibiotics today and admitted under the hospitalist service. Patient has a history of many gout flares over the years always in the toes. Has had his knee aspirated many years ago when he was a teenager after a football injury. He has been on allopurinol now. [facility] Medical History (Updated 05/20/25 @ 16:38 by Zaki Lu MD) Left knee pain Effusion, left knee Mitral valve prolapse Non-smoker Afib Home Medications ?Medication ?Instructions ?Recorded ?Last Taken ?Type pentoxifylline 400 mg 400 mg PO BID 02/19/18 05/20/25 History tablet,extended release warfarin 5 mg tablet (Coumadin) 5 mg PO QODAY 02/19/18 05/18/25 History allopurinol 100 mg tablet 100 mg PO QODAY 05/20/25 05/19/25 History amitriptyline 50 mg tablet 25 mg PO DAILY 05/20/25 05/19/25 History cefdinir 300 mg capsule 300 mg PO Q12.TCU 05/20/25 05/20/25 History hydrocodone-acetaminophen 5-325mg 1 tab PO 4X/DAY PRN PRN pain 05/20/25 05/17/25 History 5mg-325mg ibuprofen 200 mg tablet (Advil) 800 mg PO Q6H PRN pain 05/20/25 05/20/25 History latanoprost 0.005 % eye drops 1 drp ophthalmic (eye) QPM 05/20/25 05/19/25 History metoprolol tartrate 50 mg tablet 25 mg PO BID 05/20/25 05/20/25 History nitroglycerin 0.4 mg sublingual 0.4 mg sublingual Q5M PRN chest 05/20/25 Unknown History tablet pain sulfamethoxazole 800 1 tab PO BID 05/20/25 05/20/25 History mg-trimethoprim 160 mg tablet warfarin 5 mg tablet 7.5 mg PO QODAY 05/20/25 05/19/25 History Allergy/AdvReac Type Severity Reaction Status Date / Time acetaminophen (From Vicodin) AdvReac Nausea/Vom/ Verified 05/20/25 11:03 Diarrhea hydrocodone bitartrate (From AdvReac Nausea/Vom/ Verified 05/20/25 11:03 Vicodin) Diarrhea Family History Mother Hypertension Multiple sclerosis Surgical History H/O foot surgery Social History Smoking Status: Never smoker Vital Signs Vital Signs Vital Signs: 05/20/25 10:59 05/20/25 11:43 05/20/25 11:43 Temperature 95.5 F L 98.7 F Temperature Source Temporal Oral Pulse Rate 89 110 H Respiratory Rate 16 18 Blood Pressure 126/105 H 132/94 H Blood Pressure Mean 112 106 Blood Pressure Source Blood Pressure Position Blood Pressure Location Pulse Ox 97 98 Oxygen Delivery Method Room Air Room Air Room Air 05/20/25 12:03 05/20/25 13:00 05/20/25 14:15 Temperature 98.9 F 98.9 F 98 F Temperature Source Oral Temporal Pulse Rate 104 H 114 H 97 Respiratory Rate 18 19 H 16 Blood Pressure 154/66 H 141/78 H 121/84 H Blood Pressure Mean 95 99 96 Blood Pressure Source Blood Pressure Position Blood Pressure Location Pulse Ox 99 98 100 Oxygen Delivery Method Room Air Room Air 05/20/25 14:33 Temperature 98.1 F Temperature Source Oral Pulse Rate 107 H Respiratory Rate 18 Blood Pressure 121/84 H Blood Pressure Mean 96 Blood Pressure Source Manual Blood Pressure Position Semi-Fowlers Blood Pressure Location Right Arm Pulse Ox 99 Oxygen Delivery Method Room Air Weight Weight: 229 lb 4.492 oz Body Mass Index (BMI) 31.1 Physical Exam Const alert, oriented x3, no apparent distress and well nourished Resp normal respiratory effort Effort and Inspection: able to speak in complete sentences Extremity Extremity Narrative: The left knee looks mildly swollen. There is slight redness mild to moderate warmth throughout the knee diffusely. There is very scant prepatellar swelling. There is a moderate-sized effusion. The range of motion is 0 to 70 degrees. No extreme pain with micromotion. Neurovascularly intact calf is soft no pain up of the hip or ankle. Able to hold the leg straight. There is mild diffuse pain around the knee. No pain with light touch. Lab / Micro Data Attestation: I reviewed the patient's lab results. 05/20/25 11:50 05/20/25 11:50 Labs: Laboratory Results - last 24 hr 05/20/25 11:50: WBC 9.1, RBC 5.89, Hgb 17.4 H, Hct 51.2, MCV 86.9, MCH 29.5, MCHC 34.0, RDW Std Deviation 45.7 H, RDW Coeff of Misbah 14.2, Plt Count 222, MPV 10.8, Immature Gran % (Auto) 1.900 H, Neut % (Auto) 74.8 H, Lymph % (Auto) 13.3 L, [place] % (Auto) 8.0, Eos % (Auto) 1.1, Baso % (Auto) 0.9, Absolute Neuts (auto) 6.8, Absolute Lymphs (auto) 1.21, Nucleated RBC % 0, ESR 25 H, PT 41.7 H, INR 4.2 H*, APTT 57.0 H, Sodium 138, Potassium 4.6, Chloride 101, Carbon Dioxide 23.8, Anion Gap 13, BUN 27 H, Creatinine 1.20, Est GFR (MDRD) Non-Af 66, BUN/Creatinine Ratio 22.2 H, Glucose 107 H, Lactic Acid 1.7, Uric Acid 5.7, Calcium 9.5, Total Bilirubin 0.37, AST 24, ALT 30, Alkaline Phosphatase 74, C-React Prot Ext Range 31.10 H, Total Protein 7.1, Albumin 4.0, Globulin 3.1, Albumin/Globulin Ratio 1.3, Procalcitonin 0.04 Imaging Radiology Impression Knee X-Ray 05/20/25 11:55 IMPRESSION: There is mild medial joint space narrowing with the minimal spurring of the patellofemoral articulation. There is a large visible joint effusion. Reading Location: [facility] [place] large effusion I independently reviewed the imaging. Concur with radiologist report. Assessment & Plan Assessment/Plan (1) Effusion, left knee: PLAN: 70-year-old man with 2 weeks history of atraumatic increasing left knee pain swelling redness mild warmth and a moderate effusion with range of motion 0 to 80 degrees and a white blood cell count of 9 with a history of many gout exacerbations. Differential diagnosis for this is wide but includes gout pseudogout septic arthritis infected prepatellar bursitis reactive arthritis or other problems about the knee. It is important to rule out acute septic arthritis as well ...however I have a high clinical suspicion for a gout flare of the knee given the fact that he did not improve on oral antibiotics the exam is more consistent with a moderate-sized effusion and the patient has had many gout attacks in the past, with no pain on micro motion. Best next step here is an aspiration of the knee I discussed the pros and cons risks and benefits of doing this versus doing nothing and continued observation with the patient and his . If we miss an acute septic arthritis this is resulting in devastating complications patient understands wishes to go ahead with and signed the consent form for left knee aspiration. I marked the left knee did a preprocedure timeout. We discussed the pros and cons risks and benefits of going ahead with left knee aspiration. The risks include but are not limited to infection, pain, acute flare reaction, stiffness, bleedin,g damage to surrounding structures, worsening arthritis or damage to the cartilage. Patient has mild chance of some bleeding or bruising or hemarthrosis to the knee given the INR of 4 but at this point it is very important to proceed with the aspiration. The patient wished to proceed. The lateral aspect of the knee was prepped with chlorhexidine in the usual sterile fashion. Sterile no touch technique was employed. 6 cc of 0.25% lidocaine was injected into the soft tissues laterally at the suprapatellar lateral area of the knee. Once I let that set and I then used an 18-gauge needle with 30 cc syringe to aspirate about 20 cc of light yellow-colored fluid from the knee. No purulence or foul smell. I sent these in multiple culture tubes and sample bottle. I sent this for stat Gram stain culture and sensitivities crystals cell count protein glucose. We will follow these up [facility]. The patient tolerated procedure well. Bandage placed and SHARMAINE wrap. There is no complications. Standard post procedure care instructions were given. Plan to continue on with antibiotics until the Gram stain and fluid analysis has returned. (2) Left knee pain:
[2025-05-20 17:17] LABS: Synovial Fld Mononuclear WBC # 1.729 10^3/ul; Synovial Fld Mononuclear WBC % 43.7 %; Synovial Fld Polynuclear WBC # 2.226 10^3/uL; Synovial Fld Polynuclear WBC % 56.3 %; Total Cell Count Synovial Fld 4.0340 10^3/uL (0.000-0.000); WBC / Synovial Fluid 3.9550 10^3/uL (0.000-0.002)
[2025-05-20 17:35] LABS: RBC /Synovial Fluid 0.005 10^6/uL (0)
[2025-05-20 18:24] LABS: AUTO B FLUID DILUENT BKGD CT WBC <0.1 RBC <0.01 (W<.1,R<.01); Source / Synovial Fluid LEFT KNEE; Source- Body Fluid SYNOVIAL
[2025-05-20 18:25] LABS: Appearance /Synovial Fluid Cloudy (CLEAR); Color / Synovial Fluid Yellow (Pale Yellow); Monocyte /Synovial Fluid 30 %
[2025-05-20] MEDS: 0.9% Saline Lock 10 ML Syringe IV (18:56)
[2025-05-20 19:28] LABS: Body Fluid QC Type(s) BF1
[2025-05-20] MEDS: MELATONIN 10 MG TABLET PO (22:01)
[2025-05-20] MEDS: Latanoprost 0.005% 1 Bottle 1 DRP OPHTHALMIC (22:02)
[2025-05-20] MEDS: Senna/Docusate Sodium 1 Tablet 2 TABLET PO (22:02)
[2025-05-20] MEDS: Lidocaine 1% (20 ml mdv) 20 ML Vial INFILT (22:11)
[2025-05-21] VITALS (7 sets, daily range): BP systolic 123–149; BP diastolic 79–88; PULSE 71–86; RESP 15–18; TEMP 35.8–36.5; O2SAT 96–100
[2025-05-21] MEDS: 0.9% Saline Lock 10 ML Syringe IV ×3 (00:57→20:30)
[2025-05-21] MEDS: Piperacil/Tazobactam 3.375 GM in 0.9% Normal Saline (50mL MB+) 50 ML IV (05:01)
[2025-05-21 05:30] LABS: Hematocrit 46.9 % (40-54); Hemoglobin 16.1 g/dL (13.0-16.5); Immature Granulocytes Count 0.050 X10^3/uL (0.0-0.0); Mean Corp Hgb Conc 34.3 g/dL (32-36); Mean Corpuscular Volume 88.0 fL (80-94); Mean Platelet Vol. 11.1 fl (6.2-12.0); NRBC Flagged by Analyzer 0 % (0-5); Platelet Count 198 K/mm3 (150-450); RBC Distribution Width CV 14.6 % (11.6-14.6); RBC Distribution Width SD 46.7 fl (35.1-43.9); Red Blood Count 5.33 M/mm3 (4.6-6.2); White Blood Count 7.8 K/mm3 (4.4-11.0)
[2025-05-21 05:32] LABS: CRP 28.70 mg/L (0.0-3.0)
[2025-05-21 05:38] LABS: Anion Gap 13 (5-15); BUN 24 mg/dL (4-19); BUN/Creat Ratio 23.8 RATIO (10-20); Calcium,Total 8.8 mg/dL (7.6-11.0); Carbon Dioxide 22.0 mmol/L (21.0-32.0); Chloride 100 mmol/L (98-108); Estimated Creatinine Clearance 86.43 ml/min (50-250); Glucose 115 mg/dL (70-99); Potassium 4.1 mmol/L (3.3-5.1)
--- NOTE | 2025-05-21 07:53 | PN.HOSP_ITS ---
Reason for Visit Chief Complaint: Left knee pain with swelling and erythema Subjective Subjective Feeling well but states that his left knee is more swollen. Objective Data Objective Data Vital Signs: Vital Signs Temp Pulse Resp BP Pulse Ox O2 Del Method 36.4 C L 74 18 132/85 H 96 Room Air 05/21/25 04:09 05/21/25 04:09 05/21/25 04:09 05/21/25 04:09 05/21/25 04:09 05/21/25 04:09 Oxygen Delivery Method Room Air Weight: 104 kg Body Mass Index (BMI) 31.1 Intake & Output: Intake and Output for Last 24 Hours 05/19/25 05/20/25 05/21/25 23:59 23:59 23:59 Intake Total 1180 / 1180 1450 / 1450 Balance 1180 / 1180 1450 / 1450 Lab / Micro Data 05/21/25 04:43 05/21/25 04:43 Labs: Laboratory Results - last 24 hr 05/20/25 11:50: WBC 9.1, RBC 5.89, Hgb 17.4 H, Hct 51.2, MCV 86.9, MCH 29.5, MCHC 34.0, RDW Std Deviation 45.7 H, RDW Coeff of Misbah 14.2, Plt Count 222, MPV 10.8, Immature Gran % (Auto) 1.900 H, Neut % (Auto) 74.8 H, Lymph % (Auto) 13.3 L, [place] % (Auto) 8.0, Eos % (Auto) 1.1, Baso % (Auto) 0.9, Absolute Neuts (auto) 6.8, Absolute Lymphs (auto) 1.21, Nucleated RBC % 0, ESR 25 H, PT 41.7 H, INR 4.2 H*, APTT 57.0 H, Sodium 138, Potassium 4.6, Chloride 101, Carbon Dioxide 23.8, Anion Gap 13, BUN 27 H, Creatinine 1.20, Est GFR (MDRD) Non-Af 66, B UN/Creatinine Ratio 22.2 H, Glucose 107 H, Lactic Acid 1.7, Uric Acid 5.7, Calcium 9.5, Total Bilirubin 0.37, AST 24, ALT 30, Alkaline Phosphatase 74, C- React Prot Ext Range 31.10 H, Total Protein 7.1, Albumin 4.0, Globulin 3.1, Albumin/Globulin Ratio 1.3, Procalcitonin 0.04 05/20/25 16:30: Fluid Color Cancelled, Fluid Appearance Cancelled, Fluid RBC Cancelled, Fluid Crystals TNP, Fluid Crystal Source SYNOVIAL, Fluid Glucose Cancelled, Fluid Total Protein Cancelled, Synovial Source LEFT KNEE, Synovial Color Yellow, Synovial Appearance Cloudy, Synovial WBC 3.9550 H, Synovial RBC 0.005 H, Synovial Tot Cell Ct 4.0340 H, Synov Polynuclear WBCs 2.226, Synov Mononuclear WBCs 1.729, Synovial Neutrophils 68 H, Synovial Lymphocytes 2, Synovial Monocytes 30, Synovial Polynuclear % 56.3, Synovial Mononuclear % 43.7, Synovial Path Comment May follow 05/21/25 04:43: WBC 7.8, RBC 5.33, Hgb 16.1, Hct 46.9, MCV 88.0, MCH 30.2, MCHC 34.3, RDW Std Deviation 46.7 H, RDW Coeff of Misbah 14.6, Plt Count 198, MPV 11.1, Immature Gran % (Auto) 0.600, Neut % (Auto) 61.7, Lymph % (Auto) 21.9, [place] % (Auto) 12.3 H, Eos % (Auto) 2.6, Baso % (Auto) 0.9, Absolute Neuts (auto) 4.8, Absolute Lymphs (auto) 1.70, Nucleated RBC % 0, ESR 17, Sodium 135, Potassium 4.1, Chloride 100, Carbon Dioxide 22.0, Anion Gap 13, BUN 24 H, Creatinine 1.02, Estim Creat Clear Calc 86.43, Est GFR (MDRD) Non-Af 80, BUN/Creatinine Ratio 23.8 H, Glucose 115 H, Calcium 8.8, C-React Prot Ext Range 28.70 H Micro: Microbiology 05/20/25 16:30 Fluid - Synovial (joint) Gram Stain - Final Radiography Diagnostic Testing: Radiology Impression Knee X-Ray 05/20/25 11:55 IMPRESSION: There is mild medial joint space narrowing with the minimal spurring of the patellofemoral articulation. There is a large visible joint effusion. [facility] Physical Exam Const alert Constitutional Narrative: Sitting up in bed. Afebrile. Extremity Extremity Narrative: Left knee swollen and tender to palpation. Not warm though ice was on top of foot prior to palpation. Assessment & Plan Assessment/Plan (1) Effusion, left knee: PLAN: No report mentioned that crystals were not seen but subsequent report shows that uric acid crystals were seen. Most likely acute gout flare as patient does have a history of gout despite being on allopurinol. With the patient taking warfarin and would like to avoid NSAIDs. With a supratherapeutic INR as he currently has. Will initiate prednisone as well as colchicine. Currently on broad-spectrum antibiotics. Make disease on consultation. Discussed with Ortho who does not feel that this is septic arthritis. (2) Supratherapeutic INR: PLAN: On warfarin chronically and likely elevated due to, antibiotic usage. Recheck INR today. PLAN: Plan Chronic medical conditions * Paroxysmal atrial fibrillation: Continue with metoprolol. Warfarin currently on hold given the supratherapeutic INR. * PAD: Continue pentoxifylline. * Gout: Continue with allopurinol. VTE prophylaxis: Not indicated as patient is already anticoagulated.
[2025-05-21] MEDS: Vancomycin HCl 2,000 MG in 0.9% Normal Saline (500mL Bag) 500 ML 250 MG IV (09:29)
[2025-05-21] MEDS: 0.9% Normal Saline (250mL Bag) 250 ML IV (09:29)
--- NOTE | 2025-05-21 09:39 | PCM.RX.CS ---
Consult Antibiotic Management Pharmacy has been consulted to manage selected antibiotic: Vancomycin Type of Intervention Type of Consult: New start Suspected Infection Suspected Infection: Other (knee effusion) Prior Doses of Antibiotics Prior Doses of Antibiotics Received/Current Regimen: the patient had vanc 1500mg IV x1 yesterday in E.R. starting at 14:13 Labs Labs: Sodium 135 mmol/L (133-145) 05/21/25 04:43 Potassium 4.1 mmol/L (3.3-5.1) 05/21/25 04:43 Chloride 100 mmol/L (98-108) 05/21/25 04:43 Carbon Dioxide 22.0 mmol/L (21.0-32.0) 05/21/25 04:43 Anion Gap 13 (5-15) 05/21/25 04:43 BUN 24 mg/dL (4-19) H 05/21/25 04:43 Creatinine 1.02 mg/dL (0.70-1.20) 05/21/25 04:43 Est GFR (MDRD) Non-Af 80 (>60) 05/21/25 04:43 BUN/Creatinine Ratio 23.8 RATIO (10-20) H 05/21/25 04:43 Glucose 115 mg/dL (70-99) H 05/21/25 04:43 Microbiology Microbiology: Microbiology 05/20/25 16:30 Fluid - Synovial (joint) Gram Stain - Final 05/20/25 16:30 Fluid - Synovial (joint) Body Fluid Culture - Preliminary No growth-Final to follow Dosing Weight Weight used for dosin kg Estimated Creatinine Clearance Estimated Creatinine Clearance: 86 ml/min Goal Trough Goal Trough: 15-20 mcg/mL Pharmacy Plan for Drug Dosing Pharmacy Plan for Drug Dosing: It has been approximately 20 hours since the patient had that 1500mg dose in E.R. yesterday so will load with 2000mg IV x1 today as ordered and then continue with 1750mg IV q12h per [facility] dosing protocol. Check a trough before the 3rd dose of the 1750mg tomorrow night. Pharmacy Service will continue to monitor and adjust dosing as required. Follow-Up Labs Follow-Up Labs: Trough: Vancomycin Date/Time Labs Ordered Labs to be done on [date and time ordered]: 05/22/25 20:30
--- NOTE | 2025-05-21 11:08 | CASEMGMT ---
DARA ANGELO Assessment Face to Face with patient for initial transition planning/care coordination assessment. RN PETEY introduced self and role at [facility], pt voices understanding. Pt is A&Ox4 and is resting comfortably in bed and is calm. Pt's at bedside. Care providers, pharmacy, and demographics verified. Admitting dx: Septic prepatellar bursitis of left knee LACE Strata: 1 PCP: Pt states that he sees Danuta Boswell and Dr Rancho [place] through [facility] Specialists: Dr. Oral Cox MD (Ortho), Irma Ramirez (Cardio) Preferred Pharmacy: [facility] Insurance: [employer] [facility] Prescription Benefit: Yes LNOK: Di (W), Meggan (Daughter) Living Arrangements: Pt lives with his in a single story home with 2 steps to enter ADLs/IADLs: Indep. 6-Click score is 24. PT is not recommending additional therapy Transportation: Self, DME: Pt reports that he has access to crutches, canes, FWW, and a WC HHC/SNF: denies hx of Pt?s goal: Home Plan: TBD. Anticipate home no additional needs vs home with IV ATBs. ID and ortho are consulted. Per chart review, pt was on PO ATBs prior to arrival. Pt's knee was aspirated by Dr Lu and cultures are pending. Pt was educated about the home IV ATB process and what that would entail. Pt states that he would prefer to come to the [facility], if possible. CM to follow ID final recommendations. If IV ATBs are not warranted, pt states that he feels safe returning home with his and denies any further questions, concerns, or DC needs. CM to follow. Christos Briceno RN, CM
[2025-05-21 11:10] LABS: Prothrombin Time (Protime)PT. 37.5 SECONDS (11.7-14.9)
--- NOTE | 2025-05-21 11:39 | PN.ORTHO_ITS ---
Subjective Subjective FU note. Still painful today Objective Data Objective Data Vital Signs: Vital Signs Temp Pulse Resp BP Pulse Ox O2 Del Method 97.6 F L 76 17 136/79 H 100 Room Air 05/21/25 08:17 05/21/25 08:22 05/21/25 08:17 05/21/25 08:17 05/21/25 08:17 05/21/25 08:17 Oxygen Delivery Method Room Air Weight: 229 lb 4.492 oz Body Mass Index (BMI) 31.1 Intake & Output: Intake and Output for Last 24 Hours 05/19/25 05/20/25 05/21/25 23:59 23:59 23:59 Intake Total 1180 / 1180 1500.12 / 1500.12 Balance 1180 / 1180 1500.12 / 1500.12 Lab / Micro Data 05/21/25 04:43 05/21/25 04:43 Labs: Laboratory Results - last 24 hr 05/20/25 11:50: WBC 9.1, RBC 5.89, Hgb 17.4 H, Hct 51.2, MCV 86.9, MCH 29.5, MCHC 34.0, RDW Std Deviation 45.7 H, RDW Coeff of Misbah 14.2, Plt Count 222, MPV 10.8, Immature Gran % (Auto) 1.900 H, Neut % (Auto) 74.8 H, Lymph % (Auto) 13.3 L, [place] % (Auto) 8.0, Eos % (Auto) 1.1, Baso % (Auto) 0.9, Absolute Neuts (auto) 6.8, Absolute Lymphs (auto) 1.21, Nucleated RBC % 0, ESR 25 H, PT 41.7 H, INR 4.2 H*, APTT 57.0 H, Sodium 138, Potassium 4.6, Chloride 101, Carbon Dioxide 23.8, Anion Gap 13, BUN 27 H, Creatinine 1.20, Est GFR (MDRD) Non-Af 66, B UN/Creatinine Ratio 22.2 H, Glucose 107 H, Lactic Acid 1.7, Uric Acid 5.7, Calcium 9.5, Total Bilirubin 0.37, AST 24, ALT 30, Alkaline Phosphatase 74, C- React Prot Ext Range 31.10 H, Total Protein 7.1, Albumin 4.0, Globulin 3.1, Albumin/Globulin Ratio 1.3, Procalcitonin 0.04 05/20/25 16:30: Fluid Color Cancelled, Fluid Appearance Cancelled, Fluid RBC Cancelled, Fluid Crystals TNP, Fluid Crystal Source SYNOVIAL, Fluid Glucose Cancelled, Fluid Total Protein Cancelled, Synovial Source LEFT KNEE, Synovial Color Yellow, Synovial Appearance Cloudy, Synovial WBC 3.9550 H, Synovial RBC 0.005 H, Synovial Tot Cell Ct 4.0340 H, Synov Polynuclear WBCs 2.226, Synov Mononuclear WBCs 1.729, Synovial Neutrophils 68 H, Synovial Lymphocytes 2, Synovial Monocytes 30, Synovial Polynuclear % 56.3, Synovial Mononuclear % 43.7, Synovial Path Comment May follow 05/21/25 04:43: WBC 7.8, RBC 5.33, Hgb 16.1, Hct 46.9, MCV 88.0, MCH 30.2, MCHC 34.3, RDW Std Deviation 46.7 H, RDW Coeff of Misbah 14.6, Plt Count 198, MPV 11.1, Immature Gran % (Auto) 0.600, Neut % (Auto) 61.7, Lymph % (Auto) 21.9, [place] % (Auto) 12.3 H, Eos % (Auto) 2.6, Baso % (Auto) 0.9, Absolute Neuts (auto) 4.8, Absolute Lymphs (auto) 1.70, Nucleated RBC % 0, ESR 17, Sodium 135, Potassium 4.1, Chloride 100, Carbon Dioxide 22.0, Anion Gap 13, BUN 24 H, Creatinine 1.02, Estim Creat Clear Calc 86.43, Est GFR (MDRD) Non-Af 80, BUN/Creatinine Ratio 23.8 H, Glucose 115 H, Calcium 8.8, C-React Prot Ext Range 28.70 H 05/21/25 10:38: PT 37.5 H, INR 3.7 Micro: Microbiology 05/20/25 16:30 Fluid - Synovial (joint) Gram Stain - Final 05/20/25 16:30 Fluid - Synovial (joint) Body Fluid Culture - Preliminary No growth-Final to follow Radiography Diagnostic Testing: Radiology Impression Knee X-Ray 05/20/25 11:55 IMPRESSION: There is mild medial joint space narrowing with the minimal spurring of the patellofemoral articulation. There is a large visible joint effusion. [facility] Physical Exam Const alert and oriented x3 Extremity Extremity Narrative: less swollen today, still warm, less effusion - min rednesss Assessment & Plan Assessment/Plan (1) Left knee pain: PLAN: 70 yr M - I spoke with Dr. Mallory. Uric acid crystals are present, and negative gram stain. This to my interpretation is a gout flare - recommend hospitalist to treat with indomethacin or similar strong anti inflammatory / acute gout medication, (and hold antibiotics - though would also of course appreciate ID input. ) (2) Effusion, left knee: (3) Gout of left knee:
--- NOTE | 2025-05-21 13:30 | PCM.CONS.GEN ---
Assessment & Plan Assessment/Plan (1) Gout of left knee: PLAN: Crystals seen per report. Will stop zosyn. Will follow as needed, thank you HPI Consult Data Date of Consult: 05/21/25 HPI Narrative Reason for Consultation: suspected septic arthritis HPI Narrative: JC BHANDARI, is a 70 M with h/o gout, presented with 2 weeks progressive L knee pain, redness, and swelling. Started after kneeling while working outside. No breaks in the skin. No fever or chills. Saw PCP and then ortho. No aspiration done, given bactrim and cefdinir without improvement. Pain was moderate, worse with movement. Came to ED, admitted on zosyn, aspiration done here. Feeling better, knee still sore and swollen. Full ROS performed and neg except as noted above. [facility] Medical History Gout of left knee Left knee pain Effusion, left knee Mitral valve prolapse Non-smoker Afib Home Medications ?Medication ?Instructions ?Recorded ?Last Taken ?Type pentoxifylline 400 mg 400 mg PO BID 02/19/18 05/20/25 History tablet,extended release warfarin 5 mg tablet (Coumadin) 5 mg PO QODAY 02/19/18 05/18/25 History allopurinol 100 mg tablet 100 mg PO QODAY 05/20/25 05/19/25 History amitriptyline 50 mg tablet 25 mg PO DAILY 05/20/25 05/19/25 History cefdinir 300 mg capsule 300 mg PO Q12.TCU 05/20/25 05/20/25 History hydrocodone-acetaminophen 5-325mg 1 tab PO 4X/DAY PRN PRN pain 05/20/25 05/17/25 History 5mg-325mg ibuprofen 200 mg tablet (Advil) 800 mg PO Q6H PRN pain 05/20/25 05/20/25 History latanoprost 0.005 % eye drops 1 drp ophthalmic (eye) QPM 05/20/25 05/19/25 History metoprolol tartrate 50 mg tablet 25 mg PO BID 05/20/25 05/20/25 History nitroglycerin 0.4 mg sublingual 0.4 mg sublingual Q5M PRN chest 05/20/25 Unknown History tablet pain sulfamethoxazole 800 1 tab PO BID 05/20/25 05/20/25 History mg-trimethoprim 160 mg tablet warfarin 5 mg tablet 7.5 mg PO QODAY 05/20/25 05/19/25 History Allergy/AdvReac Type Severity Reaction Status Date / Time hydrocodone bitartrate (From AdvReac Nausea/Vom/ Verified 05/20/25 11:03 Vicodin) Diarrhea Family History Mother Hypertension Multiple sclerosis Surgical History H/O foot surgery Social History Smoking Status: Never smoker Physical Exam Const alert, oriented x3 and no apparent distress General Appearance: cooperative HEENT normocephalic and head/scalp atraumatic Eyes PERRL and EOMs intact bilaterally Neck supple and No nodes Resp normal air movement and clear to auscultation bilaterally Cardio regular rate and regular rhythm GI soft to palpation, non-tender and non-distended Extremity Extremity Narrative: L knee swelling, tenderness General Extremity: Negative for edema Skin no rashes or lesions noted Neuro CN's II-XII intact bilaterally Lab / Micro Data Attestation: I reviewed the patient's lab results. 05/21/25 04:43 05/21/25 04:43 Labs: Laboratory Results - last 24 hr 05/20/25 11:50: ESR 25 H, Uric Acid 5.7, C-React Prot Ext Range 31.10 H, Procalcitonin 0.04 05/20/25 16:30: Fluid Color Cancelled, Fluid Appearance Cancelled, Fluid RBC Cancelled, Fluid Crystals TNP, Fluid Crystal Source SYNOVIAL, Fluid Glucose Cancelled, Fluid Total Protein Cancelled, Synovial Source LEFT KNEE, Synovial Color Yellow, Synovial Appearance Cloudy, Synovial WBC 3.9550 H, Synovial RBC 0.005 H, Synovial Tot Cell Ct 4.0340 H, Synov Polynuclear WBCs 2.226, Synov Mononuclear WBCs 1.729, Synovial Neutrophils 68 H, Synovial Lymphocytes 2, Synovial Monocytes 30, Synovial Polynuclear % 56.3, Synovial Mononuclear % 43.7, Synovial Path Comment Reviewed 05/21/25 04:43: WBC 7.8, RBC 5.33, Hgb 16.1, Hct 46.9, MCV 88.0, MCH 30.2, MCHC 34.3, RDW Std Deviation 46.7 H, RDW Coeff of Misbah 14.6, Plt Count 198, MPV 11.1, Immature Gran % (Auto) 0.600, Neut % (Auto) 61.7, Lymph % (Auto) 21.9, [place] % (Auto) 12.3 H, Eos % (Auto) 2.6, Baso % (Auto) 0.9, Absolute Neuts (auto) 4.8, Absolute Lymphs (auto) 1.70, Nucleated RBC % 0, ESR 17, Sodium 135, Potassium 4.1, Chloride 100, Carbon Dioxide 22.0, Anion Gap 13, BUN 24 H, Creatinine 1.02, Estim Creat Clear Calc 86.43, Est GFR (MDRD) Non-Af 80, BUN/Creatinine Ratio 23.8 H, Glucose 115 H, Calcium 8.8, C-React Prot Ext Range 28.70 H 05/21/25 10:38: PT 37.5 H, INR 3.7 Micro: Microbiology 05/20/25 16:30 Fluid - Synovial (joint) Gram Stain - Final 05/20/25 16:30 Fluid - Synovial (joint) Body Fluid Culture - Preliminary No growth-Final to follow
--- NOTE | 2025-05-21 14:36 | CHAPLAIN ---
Type of Pastoral Visit _x__ Initial Visit ___ Follow-up Visit ___ On-call Visit ___ General Patient Visit ___ Spiritual Assessment ___ Family Conference ___ Bereavement ___ Rapid Response ___ Code Blue ___ Other (describe below) Pastoral Care Referral From _x__ Patient ___ Family ___ Nurse ___ Physician ___ Hydroelectric Machinery Mechanic ___ Supervisor Finishing Room ___ Other (describe below) Sacrament/Intervention _x__ Active listening ___ Anointing ___ Roman Catholic ___ Bereavement ___ Communion ___ Tawanna exploration ___ _x__ Life review _x__ Prayer ___ Reconciliation ___ Sacrament of Sick _x__ Supportive presence ___ Wedding ___ Other (describe below) Pastoral Comments 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
[2025-05-21] MEDS: Latanoprost 0.005% 1 Bottle 1 DRP OPHTHALMIC (20:29)
[2025-05-21] MEDS: MELATONIN 10 MG TABLET PO (20:30)
[2025-05-22 02:00] VITALS: BP 125/79; PULSE 75; RESP 17; TEMP 36.2; O2SAT 100
[2025-05-22 07:28] LABS: Hematocrit 44.8 % (40-54); Hemoglobin 15.2 g/dL (13.0-16.5); Immature Granulocytes Count 0.050 X10^3/uL (0.0-0.0); Mean Corp Hgb Conc 33.9 g/dL (32-36); Mean Corpuscular Volume 87.0 fL (80-94); Mean Platelet Vol. 10.8 fl (6.2-12.0); NRBC Flagged by Analyzer 0 % (0-5); Platelet Count 216 K/mm3 (150-450); RBC Distribution Width CV 13.9 % (11.6-14.6); RBC Distribution Width SD 45.0 fl (35.1-43.9); Red Blood Count 5.15 M/mm3 (4.6-6.2); White Blood Count 12.6 K/mm3 (4.4-11.0)
--- NOTE | 2025-05-22 07:53 | PN.HOSP_ITS ---
Reason for Visit Chief Complaint: Left knee pain with swelling and erythema Subjective Subjective Left knee pain improved. Still does have swelling in the knee. Objective Data Objective Data Vital Signs: Vital Signs Temp Pulse Resp BP Pulse Ox O2 Del Method 36.2 C L 75 17 125/79 H 100 Room Air 05/22/25 02:00 05/22/25 02:00 05/22/25 02:00 05/22/25 02:00 05/22/25 02:00 05/22/25 02:30 Oxygen Delivery Method Room Air Weight: 104 kg Body Mass Index (BMI) 31.1 Intake & Output: Intake and Output for Last 24 Hours 05/20/25 05/21/25 05/22/25 23:59 23:59 23:59 Intake Total 1180 / 1180 2045.87 / 5.87 Balance 1180 / 1180 2045.87 / 5.87 Lab / Micro Data 05/22/25 07:06 05/22/25 08:44 Labs: Laboratory Results - last 24 hr 05/20/25 16:30: Synovial Path Comment Reviewed 05/21/25 10:38: PT 37.5 H, INR 3.7 05/22/25 07:06: WBC 12.6 H, RBC 5.15, Hgb 15.2, Hct 44.8, MCV 87.0, MCH 29.5, MCHC 33.9, RDW Std Deviation 45.0 H, RDW Coeff of Misbah 13.9, Plt Count 216, MPV 10.8, Immature Gran % (Auto) 0.400, Neut % (Auto) 89.9 H, Lymph % (Auto) 5.5 L, [place] % (Auto) 4.0, Eos % (Auto) 0.0, Baso % (Auto) 0.2, Absolute Neuts (auto) 11.3 H, Absolute Lymphs (auto) 0.69 L, Nucleated RBC % 0 Micro: Microbiology 05/20/25 16:30 Fluid - Synovial (joint) Gram Stain - Final 05/20/25 16:30 Fluid - Synovial (joint) Body Fluid Culture - Preliminary No growth-Final to follow Physical Exam Const alert and no apparent distress Constitutional Narrative: Up in the room using a walker. Able to put some weight on his left lower extremity. Extremity Extremity Narrative: Swelling of the left anterior knee. No warmth. Assessment & Plan Assessment/Plan (1) Effusion, left knee: PLAN: 2/ acute gouty arthritis Abx DC'd. On prednisone and colchicine (pt advised of potential for loose stools/diarrhea with colchicine). Since already on allopurinol (and has been for years) will continue. Patient endorses that he uses allopurinol not on a daily basis. 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 Patient may not be adequately removing uric acid with the by not taking allopurinol on a regular basis. Went in detail explained how the uric acid can be improved with long- term allopurinol use and possible that allopurinol may need to be uptitrated. Did discuss with the patient also if he were to research allopurinol he may see some of the horror stories in regards to Rucker-Feliciano's or toxic epidermal necrolysis but those are extremely rare and usually associated with a particular, fitz genetic haplotype. Also explained to him that though the icing is good for inflammation in general it may not actually be beneficial in regards to crystal arthropathy as there may be more deposition of crystals paradoxically with the cooling that the ice provides and may prolong the inflammation. I told him that it is more anecdotal rather than definitive science but did recommend continue with the prednisone and then colchicine as needed and as well as taking allopurinol on a daily basis. I did tell him that until his uric acid levels are overall improved that he may continue to have gout flares as the allopurinol will be pulling the uric acid that has been deposited in tissues into his bloodstream. (2) Supratherapeutic INR: PLAN: On warfarin chronically and likely elevated due to, antibiotic usage. Recheck INR today. PLAN: Plan Chronic medical conditions * Paroxysmal atrial fibrillation: Continue with metoprolol. Warfarin currently on hold given the supratherapeutic INR. Follow-up INR as outpatient. * PAD: Continue pentoxifylline. * Gout: Continue with allopurinol. VTE prophylaxis: Not indicated as patient is already anticoagulated.
[2025-05-22 08:17] VITALS: BP 126/86; PULSE 67; RESP 16; TEMP 36.4; O2SAT 98
--- NOTE | 2025-05-22 08:19 | PCM.PN.ORT ---
Subjective Subjective admission for gout flare left knee Objective Data Objective Data Vital Signs: Vital Signs Temp Pulse Resp BP Pulse Ox O2 Del Method 97.2 F L 75 17 125/79 H 100 Room Air 05/22/25 02:00 05/22/25 02:00 05/22/25 02:00 05/22/25 02:00 05/22/25 02:00 05/22/25 02:30 Oxygen Delivery Method Room Air Weight: 229 lb 4.492 oz Body Mass Index (BMI) 31.1 Intake & Output: Intake and Output for Last 24 Hours 05/20/25 05/21/25 05/22/25 23:59 23:59 23:59 Intake Total 1180 / 1180 2045.87 / 2044.87 Balance 1180 / 1180 2045.87 / 2044.87 Lab / Micro Data 05/22/25 07:06 05/21/25 04:43 Labs: Laboratory Results - last 24 hr 05/20/25 16:30: Synovial Path Comment Reviewed 05/21/25 10:38: PT 37.5 H, INR 3.7 05/22/25 07:06: WBC 12.6 H, RBC 5.15, Hgb 15.2, Hct 44.8, MCV 87.0, MCH 29.5, MCHC 33.9, RDW Std Deviation 45.0 H, RDW Coeff of Misbah 13.9, Plt Count 216, MPV 10.8, Immature Gran % (Auto) 0.400, Neut % (Auto) 89.9 H, Lymph % (Auto) 5.5 L, [place] % (Auto) 4.0, Eos % (Auto) 0.0, Baso % (Auto) 0.2, Absolute Neuts (auto) 11.3 H, Absolute Lymphs (auto) 0.69 L, Nucleated RBC % 0, Sodium Cancelled, Potassium Cancelled, Chloride Cancelled, Carbon Dioxide Cancelled, Anion Gap Cancelled, BUN Cancelled, Creatinine Cancelled, Estim Creat Clear Calc Cancelled, Est GFR (MDRD) Non-Af Cancelled, BUN/Creatinine Ratio Cancelled, Glucose Cancelled, Calcium Cancelled Micro: Microbiology 05/20/25 16:30 Fluid - Synovial (joint) Gram Stain - Final 05/20/25 16:30 Fluid - Synovial (joint) Body Fluid Culture - Preliminary No growth-Final to follow Assessment & Plan Assessment/Plan (1) Gout of left knee: PLAN: 70 yr M with left knee gout. No role for surgical intervention. ORTHO SIGNS OFF. FU PRN. (2) Left knee pain:
[2025-05-22 08:22] VITALS: PULSE 67
[2025-05-22 09:06] LABS: Prothrombin Time (Protime)PT. 29.8 SECONDS (11.7-14.9)
[2025-05-22 09:20] LABS: Anion Gap 15 (5-15); BUN 18 mg/dL (4-19); BUN/Creat Ratio 20.6 RATIO (10-20); Calcium,Total 9.5 mg/dL (7.6-11.0); Carbon Dioxide 20.3 mmol/L (21.0-32.0); Chloride 99 mmol/L (98-108); Estimated Creatinine Clearance 100.18 ml/min (50-250); Glucose 147 mg/dL (70-99); Potassium 4.9 mmol/L (3.3-5.1)
--- NOTE | 2025-05-22 09:39 | DS.PCM_ITS ---
Providers Date of Admission: 05/20/25 Primary Care Physician: Dr. Danuta Boswell, DO Consultations 05/20/25 14:50 Consult: Infectious Disease Routine Consulting Provider: Oral Gilbert Reason for Consult: ?prepatellar septic bursitis failed outpt management EMERGENT Consult: No Notified: Yes Date Notified: 05/20/25 Time Notified: 14:11 Method of Notification: Text Consult: Orthopedics Routine Consulting Provider: Zaki Lu Reason for Consult: ?prepatellar septic bursitis failed outpt management EMERGENT Consult: No Notified: Yes Date Notified: 05/20/25 Time Notified: 14:11 Method of Notification: ED Physician Initiated Reason For Visit: LEFT KNEE REDNESS AND SWELLING Diagnosis Discharge Diagnosis (1) Effusion, left knee: Status: Acute Code(s): M25.462 - Effusion, left knee Plan: 10/27 acute gouty arthritis Abx DC'd. On prednisone and colchicine (pt advised of potential for loose stools/diarrhea with colchicine). Since already on allopurinol (and has been for years) will continue. Patient endorses that he uses allopurinol not on a daily basis. 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 Patient may not be adequately removing uric acid with the by not taking allopurinol on a regular basis. Went in detail explained how the uric acid can be improved with long- term allopurinol use and possible that allopurinol may need to be uptitrated. Did discuss with the patient also if he were to research allopurinol he may see some of the horror stories in regards to Rucker-Feliciano's or toxic epidermal necrolysis but those are extremely rare and usually associated with a particular, fitz genetic haplotype. Also explained to him that though the icing is good for inflammation in general it may not actually be beneficial in regards to crystal arthropathy as there may be more deposition of crystals paradoxically with the cooling that the ice provides and may prolong the inflammation. I told him that it is more anecdotal rather than definitive science but did recommend continue with the prednisone and then colchicine as needed and as well as taking allopurinol on a daily basis. I did tell him that until his uric acid levels are overall improved that he may continue to have gout flares as the allopurinol will be pulling the uric acid that has been deposited in tissues into his bloodstream. (2) Supratherapeutic INR: Status: Acute Code(s): R79.1 - Abnormal coagulation profile Plan: On warfarin chronically and likely elevated due to, antibiotic usage. Recheck INR today. Plan Chronic medical conditions * Paroxysmal atrial fibrillation: Continue with metoprolol. Warfarin currently on hold given the supratherapeutic INR. Follow-up INR as outpatient. * PAD: Continue pentoxifylline. * Gout: Continue with allopurinol. VTE prophylaxis: Not indicated as patient is already anticoagulated. Medications at Discharge Home Medications pentoxifylline 400 mg tablet,extended release 400 mg PO BID 02/19/18 warfarin 5 mg tablet (Coumadin) 5 mg PO QODAY 02/19/18 amitriptyline 50 mg tablet 25 mg PO DAILY 05/20/25 latanoprost 0.005 % eye drops 1 drp ophthalmic (eye) QPM 05/20/25 metoprolol tartrate 50 mg tablet 25 mg PO BID 05/20/25 nitroglycerin 0.4 mg sublingual tablet 0.4 mg sublingual Q5M PRN chest pain 05/20/25 warfarin 5 mg tablet 7.5 mg PO QODAY 05/20/25 acetaminophen 500 mg tablet 1,000 mg (2 x 500 mg) PO Q8 PRN Pain, Moderate #0 tabs 05/22/25 allopurinol 100 mg tablet 100 mg PO DAILY #30 tabs 05/22/25 colchicine 0.6 mg capsule 0.6 mg PO BID PRN gout flare #60 caps 05/22/25 oxycodone 5 mg tablet 5 mg PO Q4H PRN PRN Pain Score 4-10 3 days #12 tabs 05/22/25 prednisone 20 mg tablet 40 mg (2 x 20 mg) PO BREAKFAST #4 tabs 05/22/25 Hospital Course Operations None Procedures - (Arthrocentesis) Summary of Care Provided Minutes Spent on Discharge: 40 Hospital Course: Patient presents with left knee pain and effusion. Infectious process was ruled out and patient did have uric acid crystals on fluid analysis after his arthrocentesis. Patient started on prednisone as well as colchicine and that does have improvement. Weight / BMI Weight Weight: 104 kg Body Mass Index (BMI) 31.1 ABG / Lab / Microbiology Data 05/22/25 07:06 05/22/25 08:44 Laboratory: Laboratory Results - last 24 hr 05/20/25 16:30: Synovial Path Comment Reviewed 05/21/25 10:38: PT 37.5 H, INR 3.7 05/22/25 07:06: WBC 12.6 H, RBC 5.15, Hgb 15.2, Hct 44.8, MCV 87.0, MCH 29.5, MCHC 33.9, RDW Std Deviation 45.0 H, RDW Coeff of Misbah 13.9, Plt Count 216, MPV 10.8, Immature Gran % (Auto) 0.400, Neut % (Auto) 89.9 H, Lymph % (Auto) 5.5 L, [place] % (Auto) 4.0, Eos % (Auto) 0.0, Baso % (Auto) 0.2, Absolute Neuts (auto) 11.3 H, Absolute Lymphs (auto) 0.69 L, Nucleated RBC % 0, PT 29.8 H, INR 2.8, Sodium Cancelled, Potassium Cancelled, Chloride Cancelled, Carbon Dioxide Cancelled, Anion Gap Cancelled, BUN Cancelled, Creatinine Cancelled, Estim Creat Clear Calc Cancelled, Est GFR (MDRD) Non-Af Cancelled, BUN/Creatinine Ratio Cancelled, Glucose Cancelled, Calcium Cancelled 05/22/25 08:44: Sodium 134, Potassium 4.9, Chloride 99, Carbon Dioxide 20.3 L, Anion Gap 15, BUN 18, Creatinine 0.88, Estim Creat Clear Calc 100.18, Est GFR (MDRD) Non-Af 94, BUN/Creatinine Ratio 20.6 H, Glucose 147 H, Calcium 9.5 Microbiology: Microbiology 05/20/25 16:30 Fluid - Synovial (joint) Gram Stain - Final 05/20/25 16:30 Fluid - Synovial (joint) Body Fluid Culture - Preliminary No growth-Final to follow D/C Instructions Weight Bearing Status: Weight bearing as tolerated Keep extremity elevated above heart level: Left Leg DC O2, CPAP, BIPAP Needs Home O2 Discharge instructions: No Meaningful Use Info Meaningful Use Meaningful Use Diagnoses (Choose all that apply): None applicable Discharge Plan Admission Admit Date/Time: 05/20/25 14:02 Primary Reason for Your Visit: Acute gout flare of the left knee Attending Provider: Harvey Champion Primary Care Provider: Danuta Boswell Consulting Providers: Oral Gilbert; Zaki Lu; Carol Estevez Instructions Additional Instructions / Restrictions: As we discussed, I do recommend taking allopurinol on a daily basis to help reduce your overall uric acid. The dose may need to be increased over time but you can follow with your primary care doctor for that with routine uric acid levels. For this episode, you will continue with prednisone for the next several days as well as take colchicine as needed to help with the inflammation. Be aware the colchicine could cause diarrhea. Additionally as we discussed, allopurinol can be associated with severe skin reactions called Rucker- Feliciano's or toxic epidermal necrolysis but these are more associated with a certain genotype and more associated with [place] descent in - [place]. Though this is highly unlikely to ever happen to you but if you do notice any severe skin reaction such as diffuse redness, rashes, sores, notify your provider right away. If you are interested, this is an article that talks about that genotype and skin reaction: https://www.ncbi.nlm.nih.gov/books/PBG952517/. Discharge Orders/Prescriptions Prescriptions: New acetaminophen 500 mg Tablet 1,000 mg PO Q8 PRN (Reason: Pain, Moderate) Qty: 0 0RF oxycodone 5 mg Tablet 5 mg PO Q4H PRN PRN (Reason: Pain Score 4-10) 3 Days Qty: 12 0RF prednisone 20 mg Tablet 40 mg PO BREAKFAST Qty: 4 0RF colchicine 0.6 mg capsule 0.6 mg PO BID PRN (Reason: gout flare) Qty: 60 0RF Continued pentoxifylline 400 MG tablet 400 mg PO BID warfarin [Coumadin] 5 MG tablet 5 mg PO QODAY Rx Instructions: ALTERNATING WITH 7.5MG latanoprost 0.005 % drops 1 drp ophthalmic (eye) QPM metoprolol tartrate 50 mg tablet 25 mg PO BID nitroglycerin 0.4 mg tablet, sublingual 0.4 mg sublingual Q5M PRN (Reason: chest pain) amitriptyline 50 mg tablet 25 mg PO DAILY warfarin 5 mg tablet 7.5 mg PO QODAY Rx Instructions: ALTERNATING WITH 5MG Changed allopurinol 100 mg tablet 100 mg PO DAILY Qty: 30 0RF Discontinued hydrocodone-acetaminophen 5-325 mg tablet 1 tab PO 4X/DAY PRN PRN (Reason: pain) cefdinir 300 mg capsule 300 mg PO Q12.TCU Patient Comments: PT TOOK LAST DOSE THIS MORNING sulfamethoxazole-trimethoprim 800-160 mg tablet 1 tab PO BID Patient Comments: PT HAS 3 MORE DOSES LEFT ibuprofen [Advil] 200 mg tablet 800 mg PO Q6H PRN (Reason: pain) Referrals / Follow Up: Danuta Boswell DO [Primary Care Provider] - Within 2 Weeks Disposition Disposition (needs filled in before D/C Order can be placed): Home, Self Care Charges/Coding Visit Charges Inpatient E&M: 25850 Disch Hosp >30min
--- NOTE | 2025-05-22 12:13 | PHA.DC_ITS ---
Pharmacy [facility] has performed discharge medication counseling for this patient. The patient was counseled on the following discharge medications and changes in medications for homegoing review. - Colchicine, oxycodone, prednisone, acetaminophen The Reason for Use, instructions for use, and potential side effects were reviewed for all new medications. The patient's questions regarding all of their medications were answered. The patient was able to verbally demonstrate an understanding of their discharge medications.
--- NOTE | 2025-05-22 12:47 | CHAPLAIN ---
Type of Pastoral Visit ___ Initial Visit _x__ Follow-up Visit ___ On-call Visit ___ General Patient Visit ___ Spiritual Assessment ___ Family Conference ___ Bereavement ___ Rapid Response ___ Code Blue ___ Other (describe below) Pastoral Care Referral From _x__ Patient ___ Family ___ Nurse ___ Physician ___ Instructional Specialist ___ Shoe Shanker ___ Other (describe below) Sacrament/Intervention _x__ Active listening ___ Anointing ___ Sikhism ___ Bereavement ___ Communion ___ [place]anna exploration ___ ___ Life review ___ Prayer ___ Reconciliation ___ Sacrament of Sick ___ Supportive presence ___ Wedding ___ Other (describe below) Pastoral Comments patient is encouraged that his diagnosis was not as severe of what might have been; pt is planning to be discharged and is thankful; casual conversation and presence given
[2025-05-22 13:54] VITALS: BP 128/81; PULSE 98; RESP 17; TEMP 36.1; O2SAT 99
[2025-05-22 15:08] LABS: GLUCOSE, SYNOVIAL FLUID 79 mg/dL (.); PROTEIN, SYNOVIAL FLUID 3.5 g/dL (.)
== END 2025-05-22 14:26 | disposition home or self-care (01) | DRG 554 ==
LOC: ED 13:52 → MS3 14:06
PROVIDERS: Orthopaedic Surgery Sports Medicine; Admitting Provider Internal Medicine; Emergency Provider Emergency Medicine; PCP Family Medicine
DX: M10.062 Idiopathic gout, left knee (principal); I48.0 Paroxysmal atrial fibrillation; I73.9 Peripheral vascular disease, unspecified; M25.462 Effusion, left knee; Z79.899 Other long term (current) drug therapy; Z79.01 Long term (current) use of anticoagulants; R79.1 Abnormal coagulation profile; Z79.52 Long term (current) use of systemic steroids
CPT/HCPCS: 36415; 73564; 80048; 80053; 82945; 83605; 84145; 84157; 84550; 85025; 85610; 85652; 85730; 86140; 87040; 87070; 87075; 87205; 89050; 89051; 89060; 93005; 97161; 97164; 99285; A4216; J2405

== ENCOUNTER → 2025-05-27 | Outpatient (CLI) | payer MEDICARE, SELFPAY ==
[2025-05-27 16:02] LABS: Uric Acid 6.0 mg/dL (3.5-7.2)
== END | disposition home or self-care (01) ==
LOC: BFHLAB 10:49
PROVIDERS: PCP Family Medicine; Visit Provider Family Medicine
DX: M10.9 Gout, unspecified (principal)
CPT/HCPCS: 36415; 84550

== ENCOUNTER → 2025-06-13 | Outpatient (CLI) | payer MEDICARE, SELFPAY ==
[2025-06-13 15:25] LABS: Prothrombin Time (Protime)PT. 24.8 SECONDS (11.7-14.9)
[2025-06-13 15:55] LABS: Uric Acid 6.2 mg/dL (3.5-7.2)
== END | disposition home or self-care (01) ==
PROVIDERS: PCP Family Medicine; Visit Provider Family Medicine
DX: M10.9 Gout, unspecified (principal); Z51.81 Encounter for therapeutic drug level monitoring; Z79.01 Long term (current) use of anticoagulants
CPT/HCPCS: 36415; 84550; 85610